=== PATIENT | female | born 1980 | race Caucasian/White ===

== ENCOUNTER 2016-12-04 18:34 | Emergency (ER) | payer BC, OTHER ==
[2016-12-04] MEDS ORDERED: METOCLOPRAMIDE 5 MG/ML 2 ML VIAL IVP STA (19:02)
[2016-12-04] MEDS ORDERED: PANTOPRAZOLE 40 MG/10 ML VIAL IVP STA (19:02)
[2016-12-04] MEDS ORDERED: SODIUM CHLORIDE 0.9% 1,000 ML IV STA (19:02)
[2016-12-04] MEDS ORDERED: HYDROmorphone 1 MG/ML 1 ML SYRINGE IVP STA (19:02)
--- NOTE | 2016-12-04 19:08 | ED ---
General Adult HPI - General Chief complaint: Abdominal Pain Stated complaint: ABDOMINAL PAIN Time Seen by Provider: 12/04/16 18:47 Source: patient, family, RN notes reviewed Mode of arrival: ambulatory Limitations: no limitations - History of Present Illness Initial comments: Chief complaint and history of present illness is a 36-year-old female with complaint of epigastric area pain. This first started 2 days ago. She reports that she was at [facility] had a full workup including a CAT scan with IV contrast. She reports the labs are all within normal limits. No specific diagnosis was given. Patient reports that she's more comfortable sitting upright than laying flat. For the past 2 days she's had nausea vomiting and diarrhea. - Related Data Home Medications Medication Instructions Recorded Confirmed Norethindrone-E.estradiol-Iron 1 tab PO DAILY 06/27/15 12/04/16 [Microgestin Fe 1.5-30 Tab] Bismuth Subsalicylate 524 mg PO ONCE PRN 12/04/16 12/04/16 [Pepto-Bismol] Polyethylene Glycol 3350 [Miralax] 17 gm PO ONCE PRN 12/04/16 12/04/16 Previous Rx's Medication Instructions Recorded Omeprazole 40 mg PO DAILY #40 capsule. 12/04/16 Ondansetron Odt [Zofran ODT] 4 mg PO Q8HR PRN #10 tab 12/04/16 Allergies Allergy/AdvReac Type Severity Reaction Status Date / Time bupropion HCl Allergy Rash/Hives Verified 12/04/16 19:16 [From Wellbutrin] Penicillins Allergy Unknown Verified 12/04/16 19:16 Childhood citalopram hydrobromide AdvReac VERY Verified 12/04/16 19:16 [From Celexa] AGGRESSIVE BEHAVIOR Review of Systems ROS Statement: Those systems with pertinent positive or pertinent negative responses have been documented in the HPI. Review of systems no complaint of headache or visual acuity changes no chest pain no complaint of shortness of breath. She points epigastric region as area of maximal discomfort that radiates to the left upper and right upper quadrant area. Nausea vomiting and diarrhea. No blood in the vomit or diarrhea. No neuro deficits all systems were otherwise reviewed. Past medical problems significant for cervical cancer she had a LEEP procedure. Other surgeries include cholecystectomy. Patient's family history significant for cancer to include uterine and pancreatic cancers. Father had heart disease. She has ALLERGIES to bupropion on penicillin and citalopram. She quit smoking 14 years ago drinks alcohol socially. ROS Other: All systems not noted in ROS Statement are negative. Past Medical History Past Medical History: No Reported History History of Any Multi-Drug Resistant Organisms: None Reported Past Surgical History: Cholecystectomy, Tonsillectomy Additional Past Surgical History / Comment(s): leep Past Psychological History: No Psychological Hx Reported Smoking Status: Former smoker Past Alcohol Use History: None Reported Past Drug Use History: None Reported General Exam - General Exam Comments Initial Comments: General: The patient is awake and alert, complaining of on again off again pain to the epigastric region. Vital signs temp 99.4 pulse 90 respiratory rate 20 pulse ox 99% room air blood pressure 170/90. Morbidly obese at 330 pounds Eye: Pupils are equal, round and reactive to light, extra-ocular movements are intact ; there is normal conjunctiva bilaterally. No signs of icterus. Ears, nose, mouth and throat: There are moist mucous membranes and no oral lesions. Neck: The neck is supple, there is no tenderness. Cardiovascular: There is a regular rate and rhythm. No murmur, rub or gallop is appreciated. Respiratory: Lungs are clear to auscultation, respirations are non-labored, breath sounds are equal. No wheezes, stridor, rales, or rhonchi. Gastrointestinal: Soft, non-distended, mildly tender with deep palpation in the epigastric region.. There is no rebound or guarding present. . Bowel sounds are unremarkable. Back: No back pain Musculoskeletal: Normal ROM, no tenderness, There is no pedal edema. There is no calf tenderness or swelling. Sensation intact. Pulses equal bilaterally 2+. Neurological: No complaint of dizziness no focal or lateralizing findings. No complaint of any deficits. Skin: Skin is warm and dry and no rashes or lesions are noted. Limitations: no limitations Course Vital Signs 12/04/16 12/04/16 18:36 19:37 Temperature 99.4 F 98.8 F Pulse Rate 90 71 Respiratory 20 18 Rate Blood Pressure 170/90 162/81 O2 Sat by Pulse 99 100 Oximetry Medical Decision Making - Medical Decision Making Medical decision-making. Patient's white count 7.8 hemoglobin 14 hematocrit 41 with potassium 4.2. BUN 9 creatinine 0.8 GFR greater than 60. Amylase lipase normal limits. Plasma lactic acid mildly elevated at 2.8. I reviewed the x-rays of the abdomen. No evidence of any free air. Normal appearing gas pattern. Phleboliths noted left lower quadrant. Awaiting radiologist's final impression. Dr. Gorman Patient states she is feeling much better now. No pain. We discussed gastritis and reflux problems. Patient will follow directions. She'll be placed on omeprazole to be taken daily. Advised that if she continues having discomfort after 6 weeks endoscopy would be recommended. She'll follow-up with family physician. In the meanwhile she to continue with antacids as needed, one hour after meals and at bedtime. Advised no smoking no drinking and no foods irritate her stomach. - Lab Data Result diagrams: 12/04/16 19:42 12/04/16 19:42 Lab Results 12/04/16 12/04/16 12/04/16 Range/Units 19:42 19:42 19:42 WBC 7.8 (3.8-10.6) k/uL RBC 4.83 (3.80-5.40) m/uL Hgb 14.1 (11.4-16.0) gm/dL Hct 41.3 (34.0-46.0) % MCV 85.5 (80.0-100.0) fL MCH 29.3 (25.0-35.0) pg MCHC 34.3 (31.0-37.0) g/dL RDW 13.2 (11.5-15.5) % Plt Count 357 (150-450) k/uL Neutrophils % 62 % Lymphocytes % 29 % Monocytes % 5 % Eosinophils % 2 % Basophils % 1 % Neutrophils # 4.8 (1.3-7.7) k/uL Lymphocytes # 2.3 (1.0-4.8) k/uL Monocytes # 0.4 (0-1.0) k/uL Eosinophils # 0.1 (0-0.7) k/uL Basophils # 0.1 (0-0.2) k/uL Sodium 140 (137-145) mmol/L Potassium 4.2 (3.5-5.1) mmol/L Chloride 101 (98-107) mmol/L Carbon Dioxide 24 (22-30) mmol/L Anion Gap 15 mmol/L BUN 9 (7-17) mg/dL Creatinine 0.80 (0.52-1.04) mg/dL Est GFR (MDRD) Af Amer >60 (>60 ml/min/1.73 sqM) Est GFR (MDRD) Non-Af >60 (>60 ml/min/1.73 sqM) Glucose 101 H (74-99) mg/dL Plasma Lactic Acid Rudolph 2.8 H* (0.7-2.0) mmol/L Calcium 10.0 (8.4-10.2) mg/dL Total Bilirubin 0.4 (0.2-1.3) mg/dL AST 27 (14-36) U/L ALT 58 H (9-52) U/L Alkaline Phosphatase 48 (38-126) U/L Total Protein 7.5 (6.3-8.2) g/dL Albumin 4.6 (3.5-5.0) g/dL Amylase 55 (30-110) U/L Lipase 144 (23-300) U/L Disposition Clinical Impression: Gastritis Disposition: HOME SELF-CARE Condition: Stable Instructions: Gastritis (ED), Diet for Stomach Ulcers and Gastritis (ED) Additional Instructions: Take medications as directed. Also use antacids as needed, one hour after meals and at bedtime. No alcohol, no smoking and no gastric irritating food. Follow-up with family physician. If pain persists endoscopy recommended in 6 weeks. Prescriptions: Omeprazole 40 mg PO DAILY #40 capsule. Ondansetron Odt [Zofran ODT] 4 mg PO Q8HR PRN #10 tab PRN Reason: Nausea Referrals: Mohit Coulter DO [Primary Care Provider] - 1-2 days Time of Disposition: 20:25
[2016-12-04 19:52] LABS: Basophils # (A) 0.1 k/uL (0-0.2); Basophils % (A) 1 %; CH 28.9; Eosinophils # (A) 0.1 k/uL (0-0.7); Eosinophils % (A) 2 %; HCT 41.3 % (34.0-46.0); HDW 2.62; HGB 14.1 gm/dL (11.4-16.0); Luc # (Auto) 0.15; Luc % (Auto) 2; Lymphocytes # (A) 2.3 k/uL (1.0-4.8); Lymphocytes % (A) 29 %; MCH 29.3 pg (25.0-35.0); MCHC 34.3 g/dL (31.0-37.0); MCV 85.5 fL (80.0-100.0); Mean Platelet Volume 6.5; Monocytes # (A) 0.4 k/uL (0-1.0); Monocytes % (A) 5 %; Neutrophils # (A) 4.8 k/uL (1.3-7.7); Neutrophils % (A) 62 %; RBC 4.83 m/uL (3.80-5.40); RDW 13.2 % (11.5-15.5); WBC 7.8 k/uL (3.8-10.6); WBC (Perox) 7.75
[2016-12-04 20:00] LABS: ALT 58 U/L (9-52); AST 27 U/L (14-36); Alkaline Phosphatase 48 U/L (38-126); Amylase 55 U/L (30-110); Anion Gap 15 mmol/L; Blood Urea Nitrogen 9 mg/dL (7-17); Carbon Dioxide 24 mmol/L (22-30); Chloride 101 mmol/L (98-107); Glucose 101 mg/dL (74-99); Non-African American GFR(MDRD) >60 (>60 ml/min/1.73 sqM); Potassium 4.2 mmol/L (3.5-5.1); Sodium 140 mmol/L (137-145); Total Bilirubin 0.4 mg/dL (0.2-1.3); Total Protein 7.5 g/dL (6.3-8.2)
[2016-12-04 20:47] LABS: Appearance,Urine Clear (Clear); Bilirubin,Urine Negative (Negative); Glucose,Urine (UA) Negative (Negative); Ketones,Urine Negative (Negative); Leukocyte Esterase,Urine Negative (Negative); Nitrite,Urine Negative (Negative); PH, Urine 5.5 (5.0-8.0); Protein,Urine Negative (Negative); Specific Gravity,Urine 1.012 (1.001-1.035); UA Billing (MACRO vs. MICRO) CHEM; Urobilinogen,Urine <2.0 mg/dL (<2.0)
[2016-12-04 20:52] VITALS: BP 135/74; PULSE 58; RESP 16; TEMP 98.2
--- NOTE | 2016-12-06 14:09 | XR ---
EXAMINATION TYPE: XR abdomen 2V DATE OF EXAM: 12/04/2016 COMPARISON: NONE INDICATION: Abdomen pain TECHNIQUE: 2 view abdomen upright and supine views FINDINGS: There is nonspecific bowel gas present. Small bowel gas is identified which is at the upper limits of normal for size. Suspicious air-fluid levels are not identified. No free air is evident. Psoas margins are normal. No organomegaly is present. Cholecystectomy clips are present. IMPRESSION: 1. Nonspecific abdomen.
== END 2016-12-04 20:59 | disposition home or self-care (01) ==
LOC: EC 18:34
DX: K29.70 Gastritis, unspecified, without bleeding (principal); I87.8 Other specified disorders of veins; Z90.49 Acquired absence of other specified parts of digestive tract; Z87.891 Personal history of nicotine dependence; Z79.3 Long term (current) use of hormonal contraceptives; Z88.0 Allergy status to penicillin; Z88.8 Allergy status to other drugs, medicaments and biological substances
CPT/HCPCS: 99284 ×2; 96374 ×2; 96375 ×3; 96361 ×2; 36415; 80053; 82150; 83605; 83690; 85025; 81003; 74020; J2765; J1170; C9113

== ENCOUNTER → 2018-09-14 | Outpatient (CLI) | payer BC ==
--- NOTE | 2018-09-14 20:47 | CONS ---
CONSULTATION DATE OF SERVICE: 09/14/2018. 38-year-old lady has been evaluated in [facility] for obstructive sleep apnea- hypopnea syndrome. HISTORY OF PRESENT ILLNESS/SLEEP WAKE EVALUATION: Patient has history of obstructive sleep apnea since 2005. Since that time, she is on treatment with CPAP. She continues to use her equipment every night for the whole night. Recently her old machine started to develop some problems. With CPAP treatment, patient does not have any significant snoring. She sleeps well, wakes up once with nocturia. SLEEP SCHEDULE: Sleep schedule on working days from 10 p.m. to 5:45 a.m. On weekends, she sleeps from 11 p.m. until 6:30 a.m. FALLING ASLEEP: No problems with falling asleep. No TV in bedroom. DURING THE DAY/SLEEP WAKE EVALUATION: The patient may be take nap once on weekends. [place] Sleepiness Scale is 4, which is in normal range. Usually does not take any naps. MEDICATIONS: control pills. PAST MEDICAL HISTORY: Positive for cervical CA. PAST SURGICAL HISTORY: Tonsillectomy, D and C, ADAM, in 2004. SOCIAL HISTORY: Positive history for smoking 1 pack for 5 years, quit about 16 years ago. Alcohol consumption none. FAMILY HISTORY: Hypertension, heart problems, hyperlipidemia, stroke, sleep apnea, cancer, liver problems, diabetes. REVIEW OF SYSTEMS: Basically mostly negative with the usage of CPAP. A significant increasing weight for the last 12 years of 60 pounds since previous sleep study. PHYSICAL EXAM: Patient in no distress. BP 132/91, HR 88, RR 18, height 5 feet 9 inches, weight 346 pounds, temperature 98.2, oxygen saturation at room air 96%. Body mass index 51. Oropharynx extremely low position of soft palate, Mallampati 4, wide neck is 17 inches in circumference. Neck: Supple, no JVD. Thyroid is not palpable. LUNGS Clear to percussion and to auscultation. Good air exchange. No wheezing or rhonchi. HEART S1, S2 regular. No murmurs, gallops, or rubs. ABDOMEN: Obese. Soft and nontender. Bowel sounds are present. No organomegaly appreciated. EXTREMITIES No clubbing or cyanosis. CORK COMPOUNDER Awake, alert, and oriented X3. Cranial nerves 2 to 7 intact. There is no fasciculation or atrophy. noted. No focal deficits observed. IMPRESSION: 1. History of obstructive sleep apnea-hypopnea syndrome for 12 years, without machine patient snores. Extremely low position of soft palate, wide neck. The patient continued to use CPAP equipment every night with CPAP. No snoring. 2. Obesity. Patient increased weight 60 pounds since previous sleep study. 3. History of cervical carcinoma. Status post LEEP in 2004. 4. Status post tonsillectomy. 5. Status post D and C. PLAN: 1. Prescription for new CPAP unit. The patient will start to use it with automatic regimen with a maximum pressure of 15. 2. Losing weight. 3. Sleep hygiene with regular time in bed for at least 7.5 hours. 4. Prescription for all necessary CPAP supplies including mask, tube, filters. 5. No driving if feeling sleepiness. 6. I will see patient after 1 months getting new CPAP unit to evaluate clinical response on treatment compliance with treatment and check apnea-hypopnea index reading from the new CPAP unit. Thank you very much for allowing me to participate in management of your patient. Sincerely, Axel Houston MD, PhD, FAASM Diplomat of [employer] Non Food Receiving Clerk of [facility] [place] MMODL / IJN: [id number] /
== END ==
LOC: SLEEP 15:41
PROVIDERS: ATTEND Internal Medicine
DX: G47.33 Obstructive sleep apnea (adult) (pediatric) (principal); E66.9 Obesity, unspecified; Z99.89 Dependence on other enabling machines and devices; Z85.41 Personal history of malignant neoplasm of cervix uteri; Z90.49 Acquired absence of other specified parts of digestive tract; Z98.890 Other specified postprocedural states; Z68.43 Body mass index [BMI] 50.0-59.9, adult; Z87.891 Personal history of nicotine dependence; Z79.899 Other long term (current) drug therapy
CPT/HCPCS: 99211

== ENCOUNTER → 2018-11-30 | Outpatient (CLI) | payer BC ==
--- NOTE | 2018-11-30 22:13 | PN ---
PROGRESS NOTE DATE OF SERVICE: 11/30/2018 This patient is a 38-year-old lady who has been followed in [facility] for treatment of obstructive sleep apnea-hypopnea syndrome. About one month ago the patient received a new CPAP unit. She is able to use it every night without significant problems related to mask fitting, pressure and humidification. She is using [employer] FX nasal pillows for her. She does not snore with the machine. [place] Sleepiness Scale today is 4, which is in normal range. I checked her CPAP unit. Range of pressure is from 8 to 15 cm of water. Usage is 100% of nights for more than 4 hours, with average usage 7.8 hours. Average pressure is 8.9 cm of water. Leak is 7 L/minute, which is acceptable. Apnea-hypopnea index only 0.3, which is perfect. MEDICATION: control pills. PHYSICAL EXAMINATION: GENERAL: A pleasant patient in no distress. VITAL SIGNS: BP 132/74, HR 70, RR 16, weight 335 pounds, temperature 98.2, oxygen saturation at room air 97%. HEENT: PERRLA, EOMI. Evaluation of oropharynx showed tongue protrudes midline. Low position of soft palate. Mallampati IV. NECK: Supple. No JVD. Thyroid is not palpable. LUNGS: Clear to percussion and to auscultation. Good air exchange. No wheezing or rhonchi. HEART: S1, S2 regular. No murmurs, gallops or rubs. ABDOMEN: Obese. EXTREMITIES: No clubbing or cyanosis. CUT OFF MACHINE UNLOADER: Awake, alert, and oriented X3. Cranial nerves 2 to 7 intact. There is no fasciculation or atrophy. noted. No focal deficits observed. IMPRESSION: 1. Obstructive sleep apnea-hypopnea syndrome. The patient demonstrated 100% compliance with treatment, normal respiration on CPAP, benefitting from treatment. 2. Obesity. 3. History of cervical cancer, status post LEEP in 2004. 4. Status post tonsillectomy. 5. Status post dilation and curettage. PLAN: 1. The patient will continue to use CPAP equipment every night for the whole night. 2. Losing weight. 3. Sleep hygiene with regular time in bed for at least 7-1/2 to 8 hours. 4. No driving if feeling any sleepiness. 5. I will maintain all necessary prescriptions for CPAP supplies, including nasal pillows, mask, heated tube, filters. Thank you very much for allowing me to participate in the management of your patient. Sincerely, Axel Houston MD, PhD, FAASM Diplomat of [employer] Documentation Improvement Specialist of [facility] [place] MMODL / PATRICIAN: [id number] /
== END ==
LOC: SLEEP 16:40
PROVIDERS: ATTEND Internal Medicine
DX: G47.33 Obstructive sleep apnea (adult) (pediatric) (principal); E66.9 Obesity, unspecified; Z90.89 Acquired absence of other organs; Z98.890 Other specified postprocedural states; Z85.41 Personal history of malignant neoplasm of cervix uteri; Z85.89 Personal history of malignant neoplasm of other organs and systems; Z99.89 Dependence on other enabling machines and devices; Z79.899 Other long term (current) drug therapy

== ENCOUNTER 2019-05-26 14:10 | Inpatient (IN) | payer BC, OTHER ==
[~2019-05-26 14:10] MED LIST: HYDROmorphone (PF) 1 MG/ML ONE; KETOROLAC 30 MG/ML 1 ML VIAL ONE; LIDOCAINE 1% INJ 10MG/ML (20 ML MDV) ONE; MIDAZOLAM 2 MG/2 ML VIAL ONE; NEOSTIGMINE 1 MG/ML 10 ML VIAL ONE; PROPOFOL 10 MG/ML 20 ML VIAL IV ONE; ROCURONIUM BROMIDE 10 MG/ML 5 ML VIAL IV ONE; SUCCINYLCHOLINE CHLORIDE VIAL 200 MG/10 ML VIAL IV ONE; fentaNYL (PF) 50 MCG/ML 2 ML AMP ONE
[2019-05-26] MEDS ORDERED: ONDANSETRON 4 MG/2 ML VIAL IVP STA (14:55)
[2019-05-26] MEDS ORDERED: KETOROLAC 30 MG/ML 1 ML VIAL IVP STA (14:55)
[2019-05-26] MEDS ORDERED: SODIUM CHLORIDE 0.9% 1,000 ML IV STA (14:55)
--- NOTE | 2019-05-26 15:02 | ED ---
Abdominal Pain HPI <Walker Klein Miles - Last Filed: 05/26/19 19:06> - General Source: patient Mode of arrival: ambulatory Limitations: no limitations <Tiffany Carr - Last Filed: 05/26/19 19:55> - General Chief Complaint: Abdominal Pain Stated Complaint: Syncope Time Seen by Provider: 05/26/19 14:34 - History of Present Illness Initial Comments: Patient is a 39-year-old female presenting to the emergency Department with complaints of abdominal pain since yesterday. Patient states yesterday she started having intense pressure in her lower abdominal and rectal region. Patient's describes it as "holding in a lot of gas." She states she went to lay down and then had a massage yesterday and was feeling better. Patient states she woke up this morning and began having that same pressure feeling along with upper and lower abdominal pain. Patient states it is intermittent and when it does come on she has to double over in pain and it caused her to almost passed out a couple times. Patient states the sharp pain is epigastric region as well is in to her the bottom of her lower ribs, however she just feels pain in her lower abdominal region as well. Patient has history of cholecystectomy. No other abdominal surgeries. She does have history of cervical cancer over 17 years ago and has had regular follow-ups since, normal paps since. She also has history of kidney stones. She denies fever, shortness of breath, vomiting, diarrhea. She had normal bowel movement this morning. She has been nauseous when the pain intensifies. She also describes lower chest discomfort when the p ain intensifies as well. She denies being or chance of. She has no other complaints at this time. Upon arrival to the ER, her vitals are stable. (Tiffany Carr) - Related Data Home Medications Medication Instructions Recorded Confirmed Ibuprofen [Motrin] 800 mg PO TID PRN 05/26/19 05/26/19 Allergies Allergy/AdvReac Type Severity Reaction Status Date / Time bupropion HCl Allergy Rash/Hives Verified 05/26/19 18:52 [From Wellbutrin] Penicillins Allergy Unknown Verified 05/26/19 18:52 Childhood citalopram hydrobromide AdvReac VERY Verified 05/26/19 18:52 [From Celexa] AGGRESSIVE BEHAVIOR Review of Systems ROS Other: All systems not noted in ROS Statement are negative. <John Kleinssslava Aquino - Last Filed: 05/26/19 19:06> ROS Other: All systems not noted in ROS Statement are negative. <Tiffany Carr - Last Filed: 05/26/19 19:55> ROS Statement: Those systems with pertinent positive or pertinent negative responses have been documented in the HPI. Past Medical History Past Medical History: No Reported History History of Any Multi-Drug Resistant Organisms: None Reported Past Surgical History: Cholecystectomy, Tonsillectomy Additional Past Surgical History / Comment(s): leederek Past Psychological History: No Psychological Hx Reported Smoking Status: Former smoker Past Alcohol Use History: None Reported Past Drug Use History: None Reported <Tiffany Carr - Last Filed: 05/26/19 19:55> General Exam Limitations: no limitations External exam: Present: normal external exam Speculum exam: Present: normal speculum exam, other (cervical os is closed). Absent: cervical discharge, vaginal bleeding, foreign body By manual exam: Present: cervical motion tenderness (mild tenderness) <Tiffany Carr - Last Filed: 05/26/19 19:55> - General Exam Comments Initial Comments: GENERAL: Well-appearing, well-nourished and in no acute distress. HEAD: Atraumatic, normocephalic. EYES: Pupils equal round and reactive to light, extraocular movements intact, sclera anicteric, conjunctiva are normal. ENT: TMs normal, nares patent, oropharynx clear without exudates. Moist mucous membranes. NECK: Normal range of motion, supple without lymphadenopathy or JVD. LUNGS: Breath sounds clear to auscultation bilaterally and equal. No wheezes rales or rhonchi. HEART: Regular rate and rhythm without murmurs, rubs or gallops. ABDOMEN: Nonlocalized abdominal tenderness, slightly increased the epigastric and lower abdominal region. Positive guarding, positive radiation of pain Soft, normoactive bowel sounds. No rebound. No masses appreciated. EXTREMITIES: Normal range of motion, no pitting or edema. No clubbing or cyanosis. NEUROLOGICAL: Normal speech, normal gait. PSYCH: Normal mood, normal affect. SKIN: Warm, Dry, normal turgor, no rashes or lesions noted. (Tiffany Carr) Course Vital Signs 05/26/19 05/26/19 05/26/19 14:16 16:00 17:04 Temperature 97.8 F 98.7 F Pulse Rate 94 88 80 Respiratory 20 18 18 Rate Blood Pressure 120/91 129/86 118/79 O2 Sat by Pulse 100 98 98 Oximetry 05/26/19 05/26/19 05/26/19 17:37 18:30 18:40 Temperature Pulse Rate 92 113 H 118 H Respiratory 18 22 16 Rate Blood Pressure 137/78 116/101 112/76 O2 Sat by Pulse 100 100 100 Oximetry 05/26/19 05/26/19 05/26/19 18:50 19:00 19:10 Temperature Pulse Rate 85 90 94 Respiratory 28 H 25 H 27 H Rate Blood Pressure 89/59 109/73 121/66 O2 Sat by Pulse 95 98 98 Oximetry 05/26/19 19:15 Temperature Pulse Rate 98 Respiratory 18 Rate Blood Pressure 105/57 O2 Sat by Pulse 99 Oximetry Medical Decision Making - Lab Data Result diagrams: 05/26/19 15:07 05/26/19 15:07 <Walker Klein - Last Filed: 05/26/19 19:06> - Lab Data Result diagrams: 05/26/19 15:07 05/26/19 15:07 <Tiffany Carr - Last Filed: 05/26/19 19:55> - Medical Decision Making PA attestation: I, Dr. Walker Klein, personally saw and examined the patient. I have reviewed and agree with the resident/PA findings, including all diagnostic interpretations and treatment plans as written unless otherwise stated. I was present for the hernandez portions of any procedures performed and inclusive time noted for any critical care statement. Patient care was managed along with physician senior assistant manager Tiffany Carr. Briefly, patient is 39-year-old female presented with lower abdominal symptoms since yesterday. Patient having worsening symptoms. Vital signs upon arrival are within acceptable limits. There is concerns of ectopic . CT abdomen and pelvis and ultrasound of the pelvis was obtained showing complex mass concerning for ectopic . Patient was positive for and had a beta Quant of 4000. There was no signs of intrauterine .. [employer] was called immediately and will be disposition to the operating room. While in the emergency department patient became pale tachycardic and hypotensive she has multiple resuscitation bay. Massive transfusion protocol was activated. Pending type and screen. Dr. Gonzalez currently at bedside and will be taking patient straight to the operating room. Patient was continually pale mildly tachycardic and blood pressure began decreasing. Patient given 2 units of blood. (Walker Klein) Patient is a 39-year-old female presenting with abdominal pain 2 days. Patient denies chance for . Vitals are stable upon arrival. Labwork shows slight leukocytosis at 13.4, hemoglobin is 11.0. Patient was having intense belly pain and did not want to wait for urine hCG stating there is no chance that she is . So we went ahead with CT abdomen and pelvis. CT shows moderate abdominal ascites, possibility of ovarian mass cannot be excluded. They recommended ultrasound. Urine did reveal a positive hCG. Ultrasound reveals an empty uterus. Large complex mass in the pelvic around the ureter and fundus. There is mild fluid posterior to the uterine fundus. This could relate to a blood clot debridement due to ectopic with rupture. HCG Renard returned at [id number]. Case was discussed with Dr. suarez didn't. Vaginal exam reveals no vaginal bleeding, cervical os is closed, mild cervical motion tenderness. Case was discussed with Dr. Gonzalez who will see the patient and admit. During waiting time in the ER, patient became severely diaphoretic, lightheaded and her blood pressure went down to 99/50. Patient was transferred to trauma bay. Dr. Panchal took over care. Dr. Gonzalez will take to OR. (Tiffany Carr) - Lab Data Lab Results 05/26/19 05/26/19 05/26/19 Range/Units 15:07 15:07 15:07 WBC 13.4 H (3.8-10.6) k/uL RBC 3.82 (3.80-5.40) m/uL Hgb 11.0 L (11.4-16.0) gm/dL Hct 33.5 L (34.0-46.0) % MCV 87.7 (80.0-100.0) fL MCH 28.9 (25.0-35.0) pg MCHC 32.9 (31.0-37.0) g/dL RDW 13.4 (11.5-15.5) % Plt Count 333 (150-450) k/uL Neutrophils % 82 % Lymphocytes % 14 % Monocytes % 3 % Eosinophils % 0 % Basophils % 0 % Neutrophils # 10.9 H (1.3-7.7) k/uL Lymphocytes # 1.8 (1.0-4.8) k/uL Monocytes # 0.4 (0-1.0) k/uL Eosinophils # 0.0 (0-0.7) k/uL Basophils # 0.0 (0-0.2) k/uL PT 9.9 (9.0-12.0) sec INR 0.9 (<1.2) APTT 20.1 L (22.0-30.0) sec Sodium 133 L (137-145) mmol/L Potassium 4.2 (3.5-5.1) mmol/L Chloride 104 (98-107) mmol/L Carbon Dioxide 21 L (22-30) mmol/L Anion Gap 8 mmol/L BUN 15 (7-17) mg/dL Creatinine 0.70 (0.52-1.04) mg/dL Est GFR (CKD-EPI)AfAm >90 (>60 ml/min/1.73 sqM) Est GFR (CKD-EPI)NonAf >90 (>60 ml/min/1.73 sqM) Glucose 129 H (74-99) mg/dL Calcium 9.5 (8.4-10.2) mg/dL Total Bilirubin 0.4 (0.2-1.3) mg/dL AST 25 (14-36) U/L ALT 23 (4-34) U/L Alkaline Phosphatase 40 (38-126) U/L Troponin I (0.000-0.034) ng/mL Total Protein 6.2 L (6.3-8.2) g/dL Albumin 3.6 (3.5-5.0) g/dL Amylase 38 (30-110) U/L Lipase 73 (23-300) U/L HCG, Quant mIU/mL Urine Color Urine Appearance (Clear) Urine pH (5.0-8.0) Ur Specific [place] (1.001-1.035) Urine Protein (Negative) Urine Glucose (UA) (Negative) Urine Ketones (Negative) Urine Blood (Negative) Urine Nitrite (Negative) Urine Bilirubin (Negative) Urine Urobilinogen (<2.0) mg/dL Ur Leukocyte Esterase (Negative) Urine WBC (0-5) /hpf Ur Squamous Epith Cells (0-4) /hpf Calcium Oxalate Crystal (None) /hpf Urine Mucus (None) /hpf Urine HCG, Qual (Not Detectd) 05/26/19 05/26/19 05/26/19 Range/Units 15:07 15:07 15:11 WBC (3.8-10.6) k/uL RBC (3.80-5.40) m/uL Hgb (11.4-16.0) gm/dL Hct (34.0-46.0) % MCV (80.0-100.0) fL MCH (25.0-35.0) pg MCHC (31.0-37.0) g/dL RDW (11.5-15.5) % Plt Count (150-450) k/uL Neutrophils % % Lymphocytes % % Monocytes % % Eosinophils % % Basophils % % Neutrophils # (1.3-7.7) k/uL Lymphocytes # (1.0-4.8) k/uL Monocytes # (0-1.0) k/uL Eosinophils # (0-0.7) k/uL Basophils # (0-0.2) k/uL PT (9.0-12.0) sec INR (<1.2) APTT (22.0-30.0) sec Sodium (137-145) mmol/L Potassium (3.5-5.1) mmol/L Chloride (98-107) mmol/L Carbon Dioxide (22-30) mmol/L Anion Gap mmol/L BUN (7-17) mg/dL Creatinine (0.52-1.04) mg/dL Est GFR (CKD-EPI)AfAm (>60 ml/min/1.73 sqM) Est GFR (CKD-EPI)NonAf (>60 ml/min/1.73 sqM) Glucose (74-99) mg/dL Calcium (8.4-10.2) mg/dL Total Bilirubin (0.2-1.3) mg/dL AST (14-36) U/L ALT (4-34) U/L Alkaline Phosphatase (38-126) U/L Troponin I <0.012 (0.000-0.034) ng/mL Total Protein (6.3-8.2) g/dL Albumin (3.5-5.0) g/dL Amylase (30-110) U/L Lipase (23-300) U/L HCG, Quant 4063.6 mIU/mL Urine Color Yellow Urine Appearance Cloudy H (Clear) Urine pH 5.5 (5.0-8.0) Ur Specific [place] 1.026 (1.001-1.035) Urine Protein Trace H (Negative) Urine Glucose (UA) Negative (Negative) Urine Ketones 1+ H (Negative) Urine Blood Negative (Negative) Urine Nitrite Negative (Negative) Urine Bilirubin Negative (Negative) Urine Urobilinogen <2.0 (<2.0) mg/dL Ur Leukocyte Esterase Moderate H (Negative) Urine WBC 4 (0-5) /hpf Ur Squamous Epith Cells 5 H (0-4) /hpf Calcium Oxalate Crystal Occasional H (None) /hpf Urine Mucus Few H (None) /hpf Urine HCG, Qual (Not Detectd) 05/26/19 Range/Units 15:11 WBC (3.8-10.6) k/uL RBC (3.80-5.40) m/uL Hgb (11.4-16.0) gm/dL Hct (34.0-46.0) % MCV (80.0-100.0) fL MCH (25.0-35.0) pg MCHC (31.0-37.0) g/dL RDW (11.5-15.5) % Plt Count (150-450) k/uL Neutrophils % % Lymphocytes % % Monocytes % % Eosinophils % % Basophils % % Neutrophils # (1.3-7.7) k/uL Lymphocytes # (1.0-4.8) k/uL Monocytes # (0-1.0) k/uL Eosinophils # (0-0.7) k/uL Basophils # (0-0.2) k/uL PT (9.0-12.0) sec INR (<1.2) APTT (22.0-30.0) sec Sodium (137-145) mmol/L Potassium (3.5-5.1) mmol/L Chloride (98-107) mmol/L Carbon Dioxide (22-30) mmol/L Anion Gap mmol/L BUN (7-17) mg/dL Creatinine (0.52-1.04) mg/dL Est GFR (CKD-EPI)AfAm (>60 ml/min/1.73 sqM) Est GFR (CKD-EPI)NonAf (>60 ml/min/1.73 sqM) Glucose (74-99) mg/dL Calcium (8.4-10.2) mg/dL Total Bilirubin (0.2-1.3) mg/dL AST (14-36) U/L ALT (4-34) U/L Alkaline Phosphatase (38-126) U/L Troponin I (0.000-0.034) ng/mL Total Protein (6.3-8.2) g/dL Albumin (3.5-5.0) g/dL Amylase (30-110) U/L Lipase (23-300) U/L HCG, Quant mIU/mL Urine Color Urine Appearance (Clear) Urine pH (5.0-8.0) Ur Specific [place] (1.001-1.035) Urine Protein (Negative) Urine Glucose (UA) (Negative) Urine Ketones (Negative) Urine Blood (Negative) Urine Nitrite (Negative) Urine Bilirubin (Negative) Urine Urobilinogen (<2.0) mg/dL Ur Leukocyte Esterase (Negative) Urine WBC (0-5) /hpf Ur Squamous Epith Cells (0-4) /hpf Calcium Oxalate Crystal (None) /hpf Urine Mucus (None) /hpf Urine HCG, Qual Detected (Not Detectd) - EKG Data EKG Comments: Ventricular rate 96, [place] interval 156, QTc 454. Normal sinus rhythm, normal ECG. No acute ST Segment changes. (Tiffany Carr) Critical Care Time Critical Care Time: Yes Total Critical Care Time: 30 <Tiffany Carr - Last Filed: 05/26/19 19:55> Critical Care Time: Patient became hypotensive, diaphoretic, lightheaded. Patient was moved to trauma bay. Patient was reexamined, vitals re-assessed, labs reviewed, consulted with attending Dr. Klein, on-call [employer], Dr. Gonzalez, and with blood bank. (Tiffany Carr) Disposition <Walker Klein - Last Filed: 05/26/19 19:06> Is patient prescribed a controlled substance at d/c from ED?: No Decision Date: 05/26/19 Decision Time: 17:50 <Tiffany Carr - Last Filed: 05/26/19 19:55> Clinical Impression: Abdominal pain, Ruptured ectopic Disposition: ADMITTED IP TO THIS [facility] Condition: Stable
[2019-05-26 15:33] LABS: Basophils % (A) 0 %; Eosinophils % (A) 0 %; HCT 33.5 % (34.0-46.0); Lymphocytes # (A) 1.8 k/uL (1.0-4.8); Lymphocytes % (A) 14 %; MCH 28.9 pg (25.0-35.0); MCHC 32.9 g/dL (31.0-37.0); MCV 87.7 fL (80.0-100.0); Mean Platelet Volume 7.1; Monocytes # (A) 0.4 k/uL (0-1.0); Monocytes % (A) 3 %; Neutrophils # (A) 10.9 k/uL (1.3-7.7); Neutrophils % (A) 82 %; Platelet Count 333 k/uL (150-450); RBC 3.82 m/uL (3.80-5.40); RDW 13.4 % (11.5-15.5); WBC 13.4 k/uL (3.8-10.6)
[2019-05-26 15:48] LABS: ALT 23 U/L (4-34); AST 25 U/L (14-36); African American GFR (CKD) >90 (>60 ml/min/1.73 sqM); Albumin 3.6 g/dL (3.5-5.0); Alkaline Phosphatase 40 U/L (38-126); Amylase 38 U/L (30-110); Anion Gap 8 mmol/L; Blood Urea Nitrogen 15 mg/dL (7-17); Calcium 9.5 mg/dL (8.4-10.2); Carbon Dioxide 21 mmol/L (22-30); Chloride 104 mmol/L (98-107); Glucose 129 mg/dL (74-99); Non-African American GFR(CKD) >90 (>60 ml/min/1.73 sqM); Potassium 4.2 mmol/L (3.5-5.1); Sodium 133 mmol/L (137-145); Total Bilirubin 0.4 mg/dL (0.2-1.3); Total Protein 6.2 g/dL (6.3-8.2)
[2019-05-26 15:49] LABS: INR 0.9 (<1.2); Partial Thromboplastin Time 20.1 sec (22.0-30.0); Prothrombin Time 9.9 sec (9.0-12.0)
[2019-05-26 16:15] LABS: Appearance,Urine Cloudy (Clear); Bilirubin,Urine Negative (Negative); Blood,Urine Negative (Negative); Calcium Oxalate Crystals,Urine Occasional /hpf; Color,Urine Yellow; Glucose,Urine (UA) Negative (Negative); Ketones,Urine 1+ (Negative); Leukocyte Esterase,Urine Moderate (Negative); Mucus,Urine Few /hpf; Nitrite,Urine Negative (Negative); PH, Urine 5.5 (5.0-8.0); Protein,Urine Trace (Negative); Specific Gravity,Urine 1.026 (1.001-1.035); Squamous Epithelial Cell,Urine 5 /hpf (0-4); Urobilinogen,Urine <2.0 mg/dL (<2.0); WBC,Urine 4 /hpf (0-5)
--- NOTE | 2019-05-26 16:28 | CT ---
EXAMINATION TYPE: CT abdomen pelvis w con DATE OF EXAM: 05/26/2019 COMPARISON: None HISTORY: Abdominal pain. CT DLP: 3405.2 mGycm Automated exposure control for dose reduction was used. CONTRAST: Performed with IV Contrast, patient injected with 100ml mL of Isovue 300. Multiple axial sections were obtained from the diaphragm to the floor the pelvis with intravenous con trast. The contrast was Isovue 100 mL. FINDINGS: Lungs are clear. There is no pleural effusion. Heart size is normal. Liver spleen pancreas appear normal. Bile ducts are not dilated. There are clips from cholecystectomy . There is mild abdominal ascites. There is no adrenal mass. Kidneys show satisfactory contrast opaci fication. There is no hydronephrosis. Ureters are not dilated. There is some fluid in the paracolic g utters and in the pelvis. Bladder is almost empty. Uterus is anteverted. Lumbar vertebra have normal spacing and alignment. Posterior elements are intact. Bony pelvis is inta ct. Hip joints are intact. Sacroiliac joints appear normal. Uterus and ovaries are not well visualize d. IMPRESSION: There is moderate abdominal ascites. The uterus and the ovaries are not well delineated. The possibil ity of ovarian mass cannot be excluded. Ultrasound would be helpful for further evaluation if clinica lly indicated. Follow-up recommended.
[2019-05-26] MEDS ORDERED: ACETAMINOPHEN TAB 500 MG TAB PO STA (17:05)
--- NOTE | 2019-05-26 17:19 | US ---
EXAMINATION TYPE: Transabdominal DATE OF EXAM: 05/26/2019 5:03 PM COMPARISON: Same day CT CLINICAL HISTORY: lower abd pain, pressure. Pt states severe pelvic pain/ positive urine HCG EXAM PERFORMED: Transabdominal (TA) EXAM MEASUREMENTS: GESTATIONAL AGE / DATING Physician Established: Not established Dates by LMP: (4 weeks/6 days) EDC: 01/27/2020 Dates by First Scan: No prior Dates by Current Scan for: No IUP seen at this time MATERNAL ANATOMY Uterus: 10.9 x 5.3 x 5.0 cm Right Ovary: 2.3 x 2.3 x 1.9 cm Left Ovary: 3.5 x 2.6 x 2.6 cm Post CDS / Adnexa: Large complex collection within pelvis surrounding uterus approx= 13.8 x 6.6 x 2 0.5 cm, given positive beta ?ruptured ectopic GESTATION / SURVEY IUP: No IUP seen at this time, Endo thickness= 0.5 cm Date of LMP: Pt unsure, thinks 04/22/2019 Beta HcG (if available): Not available at this time, only positive urine Large, complex collection within pelvis surrounding uterus, ?blood, possible ruptured ectopic given positive urine HCG, no IUP visualized, endometrium not thickened IMPRESSION: Uterus is empty. Large complex mass in the pelvis around the uterine fundus. There is mild fluid post erior to the uterine fundus. This could relate to blood clot and debris due to ectopic with rupture in this patient with a positive test. Exam was discussed with Tiffany Carr at 5 :15 PM.
[2019-05-26] MEDS ORDERED: HYDROmorphone 1 MG/ML 1 ML SYRINGE IVP STA (17:28)
[2019-05-26] MEDS ORDERED: ONDANSETRON 4 MG/2 ML VIAL IVP PRN (17:47)
[2019-05-26] MEDS ORDERED: NALOXONE 0.4 MG/ML 1 ML VIAL IV PRN ×2 (17:47→20:28)
[2019-05-26] MEDS ORDERED: ACETAMINOPHEN TAB 325 MG TAB PO PRN (17:47)
[2019-05-26] MEDS ORDERED: HYDROmorphone 1 MG/ML 1 ML SYRINGE IVP PRN (17:47)
[2019-05-26] MEDS ORDERED: SODIUM CHLORIDE 0.9% 1,000 ML IV SCH (18:00)
[2019-05-26] MEDS ORDERED: TRANEXAMIC ACID 1,000 MG in SODIUM CHLORIDE 0.9% 100 ML IVPB ONE (18:37)
[2019-05-26] MEDS ORDERED: fentaNYL (PF) 50 MCG/ML 2 ML AMP IVP PRN (19:00)
--- NOTE | 2019-05-26 19:04 | P.HPOB ---
History of Present Illness H&P Date: 05/26/19 Chief Complaint: Ruptured ectopic Chelsey is a 39-year-old G 2 P1 who is approximately 5 weeks gestation who began having pain last night. The pain progressed and got severe she felt rectal pressure and significant pain worsen the right and left initially now all over her lower abdomen. She came to the emergency room for same and ultrasound shows large fluid collection surrounding her uterus suspect ruptured ectopic with a beta hCG of 4000 and nothing in the uterus. She is symptomatic with some lightheadedness. Initial hemoglobin was 11.9. I suspect based on the size of the blood collection in her pelvis that this number is significantly lower than what that number represents that she is probably been bleeding persistently since that initial blood count and there is a catch up period blood counts. Elevated until there is admitting to cooperation. Past medical history essentially unremarkable at this time next line past surgical history tonsil and adenoidectomy, D&C, LEEP, cholecystectomy ALLERGIES none. Social history is unremarkable. Family history noncontributory On physical exam vital signs currently are stable and she is afebrile. Heart is regular, lungs are clear abdomen is soft but significant tenderness across all quadrants. Pelvic exam done by the emergency room staff showed significant tenderness and fullness in the vagina. Assessment suspected ruptured ectopic Plan exploratory laparotomy with removal of hemoperitoneum likely salpingectomy with tube ligation on the other side as per her request as she is 39 years old and has completed her family planning. Possible bilateral soft and ectomy possible oophorectomy and attention of her other surgical needs or other surgeries. Risks/benefits/alternatives reviewed including but not limited to bleeding and infection, damage to bladder, damage to bowel, vascular injuries, nerve injuries, bleeding and infection. Potential damage to ureter as well. Some of the exam and discussion are truncated due to patient's significant pain and current condition. We are looking forward to rapidly get her to the operating room so that we can former exporter laparotomy and determine the exact cause of her abdominal bleeding. Ultrasound does show a 13 by approximately 8 x 20 cm fluid collection surrounding the entire uterus so there is no ability to differentiate which tube could be involved with the ectopic . Past Medical History Past Medical History: No Reported History History of Any Multi-Drug Resistant Organisms: None Reported Past Surgical History: Cholecystectomy, Tonsillectomy Additional Past Surgical History / Comment(s): leep Past Psychological History: No Psychological Hx Reported Smoking Status: Former smoker Past Alcohol Use History: None Reported Past Drug Use History: None Reported Medications and Allergies Home Medications Medication Instructions Recorded Confirmed Type Ibuprofen [Motrin] 800 mg PO TID PRN 05/26/19 05/26/19 History Allergies Allergy/AdvReac Type Severity Reaction Status Date / Time bupropion HCl Allergy Rash/Hives Verified 05/26/19 18:52 [From Wellbutrin] Penicillins Allergy Unknown Verified 05/26/19 18:52 Childhood citalopram hydrobromide AdvReac VERY Verified 05/26/19 18:52 [From Celexa] AGGRESSIVE BEHAVIOR Exam Osteopathic Statement: *. No significant issues noted on an osteopathic structural exam other than those noted in the History and Physical/Consult. Vital Signs Temp Pulse Resp BP Pulse Ox 05/26/19 18:30 113 H 22 116/101 100 05/26/19 17:37 92 18 137/78 100 05/26/19 17:04 98.7 F 80 18 118/79 98 05/26/19 16:00 88 18 129/86 98 05/26/19 14:16 97.8 F 94 20 120/91 100 Intake and Output 05/26/19 05/26/19 05/26/19 06:59 14:59 22:59 Intake Total 620 Balance 620 Intake: Blood Product 620 Rc As-1 Unit 310 [id number] Rc As-3 Unit 310 [id number] Other: Weight 136.078 kg Results Result Diagrams: 05/26/19 15:07 05/26/19 15:07 Abnormal Lab Results - Last 24 Hours (Table) 05/26/19 05/26/19 05/26/19 Range/Units 15:07 15:07 15:07 WBC 13.4 H (3.8-10.6) k/uL Hgb 11.0 L (11.4-16.0) gm/dL Hct 33.5 L (34.0-46.0) % Neutrophils # 10.9 H (1.3-7.7) k/uL APTT 20.1 L (22.0-30.0) sec Sodium 133 L (137-145) mmol/L Carbon Dioxide 21 L (22-30) mmol/L Glucose 129 H (74-99) mg/dL Total Protein 6.2 L (6.3-8.2) g/dL Urine Appearance (Clear) Urine Protein (Negative) Urine Ketones (Negative) Ur Leukocyte Esterase (Negative) Ur Squamous Epith Cells (0-4) /hpf Calcium Oxalate Crystal (None) /hpf Urine Mucus (None) /hpf Crossmatch 05/26/19 05/26/19 Range/Units 15:11 17:57 WBC (3.8-10.6) k/uL Hgb (11.4-16.0) gm/dL Hct (34.0-46.0) % Neutrophils # (1.3-7.7) k/uL APTT (22.0-30.0) sec Sodium (137-145) mmol/L Carbon Dioxide (22-30) mmol/L Glucose (74-99) mg/dL Total Protein (6.3-8.2) g/dL Urine Appearance Cloudy H (Clear) Urine Protein Trace H (Negative) Urine Ketones 1+ H (Negative) Ur Leukocyte Esterase Moderate H (Negative) Ur Squamous Epith Cells 5 H (0-4) /hpf Calcium Oxalate Crystal Occasional H (None) /hpf Urine Mucus Few H (None) /hpf Crossmatch See Detail
[2019-05-26] MEDS ORDERED: fentaNYL (PF) 50 MCG/ML 2 ML AMP IVP STA (19:06)
[2019-05-26] MEDS ORDERED: fentaNYL (PF) 50 MCG/ML 5 ML AMP IVP PRN (19:07)
[2019-05-26] MEDS ORDERED: IV FLUID CONTINUATION 300 ML IV ONE (19:21)
[2019-05-26] MEDS ORDERED: SODIUM CHLORIDE 0.9% 100 ML with ceFAZolin 3,000 MG IV ONE ×2 (19:43)
[2019-05-26] MEDS ORDERED: LACTATED RINGERS 1,000 ML IV ONE ×2 (20:04→21:39)
[2019-05-26] MEDS ORDERED: HYDROmorphone PCA 10 MG/50 ML BAG IV PRN (20:28)
--- NOTE | 2019-05-26 20:33 | P.OP ---
Date of Procedure: 05/26/19 Preoperative Diagnosis: Ruptured ectopic Postoperative Diagnosis: Same with hemoperitoneum and noted left cornual ectopic ruptured Procedure(s) Performed: Exploratory laparotomy with left partial salpingectomy and evacuation of hemoperitoneum. Filshie clips applied to right fallopian tube for family planning Anesthesia: PETER Surgeon: Hernesto Gonzalez Net Architect #1: Ruth Rogers Estimated Blood Loss (ml): 1,500 IV fluids (ml): 1,000 Urine output (ml): 250 Pathology: other (Ectopic ) Condition: stable Disposition: floor Operative Findings: Computed tomography scan cannot identify which side had the ectopic . Left cornual ectopic noted and removed it was ruptured on the tubal side of the ectopic Description of Procedure: Patient was taken to the operating suite where a general anesthetic was found be adequate. She was prepped and draped in the normal sterile fashion and placed in the dorsal supine position. Initially a Pfannenstiel skin incision was made and this incision was then carried through to the underlying layer of the fashion with second knife and the fascia was then nicked in the midline. This opening was then extended laterally with Harmon scissors and the superior and inferior aspect of this incision were grasped tented up, and bluntly dissected and sharply dissected. Blunt dissection the peritoneum was then done and this opening was extended superiorly and inferiorly with good visualization of both bowel bladder and evacuation of a large amount of hemoperitoneum of both liquid blood and clots was done. Once we were able to again to visualize the pelvis patient was placed in Trendelenburg position and bowels packed out of the operative field. A self-retaining retractor was then inserted and a bladder blade was placed. Uterus was then identified and palpate the left fallopian tube with a ruptured ectopic . It was grasped with a [place] and elevated. He clamps then used to clamp around the ectopic and it was excised. Over Vicryl suture was then used to obtain hemostasis in this area. A small portion of the left uterus was involved creating a cornual ectopic . O versewing of this area was then done to obtain excellent hemostasis through the area. Once this was completed uterus was tipped to the left side and the right fallopian tube was identified and 2 Filshie clips were placed on the right fallopian tube. Once this process was completed significant quantity of blood was then still evacuated by reducing the Trendelenburg and allowing the pooled blood to run down into the incision area. This was all suctioned out. Pelvis was then irrigated no bleeding is noted on added on the pedicles were on the uterus with fallopian tubes therefore all instruments removed and the fascial layer was then closed with 0 Vicryl suture. One layer of 3-0 Vicryl was placed in deep subcuticular tissues reapproximate skin and close space. Skin was then closed with 4-0 Vicryl subcuticular. Sponge, lap and needle counts were all correct 2. Patient was then taken to the recovery room in stable and satisfactory condition.
[2019-05-26] MEDS ORDERED: ONDANSETRON 4 MG/2 ML VIAL IVP ONE (21:05)
[2019-05-26] MEDS ORDERED: HYDROmorphone 1 MG/ML 1 ML SYRINGE IVP ONE ×3 (21:08→21:39)
[2019-05-26] MEDS ORDERED: diphenhydrAMINE 50 MG/ML 1 ML VIAL IVP ONE (21:19)
[2019-05-26] MEDS: LACTATED RINGERS 1,000 ML IV SCH (22:00)
[2019-05-27] MEDS: KETOROLAC 30 MG/ML 1 ML VIAL IVP PRN ×4 (02:01→20:02)
[2019-05-27 07:06] VITALS: RESP 18
[2019-05-27 07:19] LABS: Basophils % (A) 0 %; Eosinophils % (A) 0 %; HCT 28.2 % (34.0-46.0); Lymphocytes # (A) 2.7 k/uL (1.0-4.8); Lymphocytes % (A) 19 %; MCH 28.9 pg (25.0-35.0); MCHC 32.5 g/dL (31.0-37.0); MCV 88.7 fL (80.0-100.0); Mean Platelet Volume 7.4; Monocytes # (A) 0.7 k/uL (0-1.0); Monocytes % (A) 5 %; Neutrophils # (A) 10.4 k/uL (1.3-7.7); Neutrophils % (A) 74 %; Platelet Count 304 k/uL (150-450); RBC 3.18 m/uL (3.80-5.40); RDW 13.6 % (11.5-15.5)
[2019-05-27 07:48] LABS: HGB 9.2 gm/dL (11.4-16.0)
--- NOTE | 2019-05-27 10:19 | P.PN ---
Progress Note - Text Progress Note Date: 05/27/19 Chelsey is seen and evaluated this point. She is overall doing very well. Her pain is well-controlled. She is ambulating minimally will increase and ablation today. Full catheter was out and we are anticipating her voiding soon. Her vital signs are stable and she is afebrile. Heart regular, lungs clear, extremities without pain. Abdomen soft with incisional tenderness. Dressing was left in place today. We'll plan to increase ambulation later today. Advance diet as tolerated. Discontinue ENVIRONMENTAL ASSOCIATE pump this evening and address change clerk to [place]. We'll plan for hopeful discharge in the next 24-48 hours depending on how she is doing. All questions were answered for her at this time and she is again stable at this time.
[2019-05-27] MEDS ORDERED: HYDROcodone/APAP 7.5-325MG 1 EACH TAB PO PRN (17:48)
[2019-05-27] MEDS: LACTATED RINGERS 1,000 ML IV SCH (23:51)
[2019-05-28] MEDS: KETOROLAC 30 MG/ML 1 ML VIAL IVP PRN (02:07)
[2019-05-28] MEDS: LACTATED RINGERS 1,000 ML IV SCH (05:36)
--- NOTE | 2019-05-28 05:43 | P.PN ---
Progress Note - Text Progress Note Date: 05/28/19 Postoperative day #2. Patient is resting without new complaints. She wishes to go home. Vital signs are stable she's afebrile. She is ambulating and urinating and tolerating regular diet without difficulty. Incision is intact and dry. My impression is she is having a normal postoperative course. Plan is to continue routine postoperative care discharge home later this morning.
--- NOTE | 2019-05-28 05:52 | P.DS ---
Providers Date of admission: 05/26/19 17:46 Expected date of discharge: 05/28/19 Attending physician: Hernesto Gonzalez Primary care physician: [facility] Course: Please see dictated H&P for intimate details of this patient's admission. Brief summary this is a pleasant 39-year-old female presented to the emergency department with complaints of abdominal pain is found to have a ruptured left ectopic . She underwent an exploratory laparotomy with left partial salpingectomy and occlusion of the right fallopian tube for family planning as well. Postoperative patient did well on postoperative #2 she felt be stable for discharge home follow up with me in 1 week. Procedures: Exploratory laparotomy, left partial salpingectomy, right fallopian tube occlusion. Patient Condition at Discharge: Good Plan - Discharge Summary New Discharge Prescriptions: New Docusate [Colace] 100 mg PO BID PRN #60 capsule PRN Reason: Constipation HYDROcodone/APAP 7.5-325MG [[place] 7.5-325] 1 each PO Q6H PRN #12 tab PRN Reason: moderate Pain when taking po Continue Ibuprofen [Motrin] 800 mg PO TID PRN #30 tab PRN Reason: Pain Discharge Medication List Docusate [Colace] 100 mg PO BID PRN #60 capsule 05/28/19 [Rx] HYDROcodone/APAP 7.5-325MG [[place] 7.5-325] 1 each PO Q6H PRN #12 tab 05/28/19 [Rx] Ibuprofen [Motrin] 800 mg PO TID PRN #30 tab 05/28/19 [Rx] Follow up Appointment(s)/Referral(s): Umair Cortez MD [STAFF PHYSICIAN] - 1 Week Patient Instructions/Handouts: Exploratory Laparotomy (DC), Ectopic (DC) Activity/Diet/Wound Care/Special Instructions: No heavy lifting or strenuous activity for 6 weeks. No intercourse or anything per vagina for 6 weeks. Please call if any fever, chills, excessive vaginal bleeding, and/or abdominal pain. Discharge Disposition: HOME SELF-CARE
[2019-05-28] MEDS ORDERED: IBUPROFEN 600 MG TAB PO STA (07:50)
[2019-05-28 10:13] VITALS: BP 126/72; PULSE 70; TEMP 99
== END 2019-05-28 08:40 | disposition home or self-care (01) | DRG 817 ==
LOC: EC 14:10 → 4FBP 17:46
PROVIDERS: ADMIT Obstetrics & Gynecology; ATTEND Obstetrics & Gynecology
PROC: 0UB60ZZ Excision of Left Fallopian Tube, Open Approach (ICD-10-PCS; principal; 2019-05-26 18:52)
PROC: 0WCG0ZZ Extirpation of Matter from Peritoneal Cavity, Open Approach (ICD-10-PCS; principal; 2019-05-26 18:52)
PROC: 0UL50CZ Occlusion of Right Fallopian Tube with Extraluminal Device, Open Approach (ICD-10-PCS; principal; 2019-05-26 18:52)
DX: O00.102 Left tubal pregnancy without intrauterine pregnancy (principal); K66.1 Hemoperitoneum; R00.0 Tachycardia, unspecified; I95.9 Hypotension, unspecified; Z3A.01 Less than 8 weeks gestation of pregnancy; Z88.0 Allergy status to penicillin; Z88.8 Allergy status to other drugs, medicaments and biological substances; Z90.49 Acquired absence of other specified parts of digestive tract; Z79.1 Long term (current) use of non-steroidal anti-inflammatories (NSAID); Z90.89 Acquired absence of other organs; Z98.890 Other specified postprocedural states; Z87.891 Personal history of nicotine dependence; Z87.442 Personal history of urinary calculi; Z85.41 Personal history of malignant neoplasm of cervix uteri
CPT/HCPCS: 36415; 74177; 76801; 80053; 81001; 81025; 82150; 83690; 84484; 84702; 85025; 85610; 85730; 86850; 86900; 86901; 86920; 88305; 93005

== ENCOUNTER → 2020-02-28 | Outpatient (CLI) | payer BC, OTHER ==
--- NOTE | 2020-02-29 01:27 | SFUN ---
SLEEP CENTER FOLLOW UP NOTE DATE OF SERVICE: 02/28/2020 A 39-year-old lady who has been followed in the sleep center for treatment of obstructive sleep apnea-hypopnea syndrome patient. The patient successfully continuing to use her CPAP equipment every night for the whole night. Does not snore, although she increased her weight quite significantly since the previous visit. [place] Sleepiness Scale is 4 only, which is normal. I checked her CPAP unit. Range of the pressure 8 to 15. Usage is 100% of the time more than 4 hours. Average usage 8.2 hours per night. Leak was 2 L/minute only. Apnea- hypopnea index 0.7, which is perfect. MEDICATIONS: control pills. PHYSICAL EXAMINATION: GENERAL: Patient in no distress. VITAL SIGNS: BP 141/73, HR 80, RR 15, height 5 feet 9 inches, weight 363, BMI 53.6, temperature 97.8, oxygen saturation at room air 98%. HEENT: PERRLA, EOMI. Oropharynx extremely low position of soft palate. NECK: Supple, no JVD. Thyroid is not palpable. LUNGS: Clear to percussion and to auscultation. Good air exchange. No wheezing or rhonchi. HEART: S1, S2 regular. No murmurs, gallops, or rubs. ABDOMEN: Obese. EXTREMITIES: No clubbing or cyanosis. OPERATIONAL TRAINER: Awake, alert, and oriented X3. Cranial nerves 2 to 7 intact. There is no fasciculation or atrophy. noted. No focal deficits observed. IMPRESSION: 1. Obstructive sleep apnea-hypopnea syndrome. Patient demonstrated great compliance with treatment, benefitting from treatment. 2. Obesity. Patient increased her weight about 30 pounds. Apnea-hypopnea index is in normal range. 3. History of cervical cancer, status post LEEP in 2004. 4. Status post tonsillectomy. 5. Status D and C. DECISION: We will keep the same range of pressure. PLAN: 1. Patient will continue to use PAP equipment every night for the whole night. 2. Sleep hygiene with regular time in bed for at least 7-1/2 to 8 hours. 3. Precautions related to driving. No driving if feeling sleepiness. 4. I will maintain all necessary prescription for PAP supplies including mask, tube, filters. 5. Watching weight. 6. No driving if feeling sleepiness. 7. Follow-up visit in 6 months or earlier if patient has any problems. Thank you very much for allowing me to participate in management of your patient. Sincerely, Axel Houston MD, PhD, FAASM Diplomat of [place] [employer] [place] [employer] Observer of [facility] MMODL / MARVA: [id number] /
== END | disposition home or self-care (01) ==
LOC: SLEEP 16:27
PROVIDERS: ATTEND Internal Medicine
DX: G47.33 Obstructive sleep apnea (adult) (pediatric) (principal); E66.9 Obesity, unspecified; Z85.41 Personal history of malignant neoplasm of cervix uteri; Z90.89 Acquired absence of other organs

== ENCOUNTER → 2020-04-08 | Outpatient (CLI) | payer BC, OTHER ==
--- NOTE | 2020-04-09 11:50 | MM ---
Reason for exam: screening (asymptomatic). Last mammogram was performed 4 years and 11 months ago. History: Patient has history of other cancer at age 23. Family history of breast cancer in mother at age 63. Physical Findings: A clinical breast exam by your physician is recommended on an annual basis and results should be correlated with mammographic findings. MG 3D Screening Mammo W/Cad Bilateral CC, MLO, and XCCL view(s) were taken. Prior study comparison: April 30, 2015, bilateral MG screening mammo w CAD. The breast tissue is heterogeneously dense. This may lower the sensitivity of mammography. Stable benign calcifications. There is no discrete abnormality. No significant changes when compared with prior studies. ASSESSMENT: Benign, BI-RAD 2 RECOMMENDATION: Routine screening mammogram of both breasts in 1 year.
== END | disposition home or self-care (01) ==
LOC: RADMAMWWP 13:46
PROVIDERS: ATTEND Obstetrics & Gynecology
DX: Z12.31 Encounter for screening mammogram for malignant neoplasm of breast (principal)
CPT/HCPCS: 77063; 77067

== ENCOUNTER → 2020-06-12 | Outpatient (CLI) | payer BC, OTHER ==
--- NOTE | 2020-06-12 15:56 | US ---
EXAMINATION TYPE: US transvaginal DATE OF EXAM: 06/12/2020 COMPARISON: NONE CLINICAL HISTORY: N93.8 Dysfunctional uterine bleeding. DUB TECHNIQUE: Transvaginal (TV). EXAM MEASUREMENTS: Uterus: 8.5 x 4.4 x 5.0 cm Endometrial Stripe: .8 cm Right Ovary: 5.6 x 3.9 x 5.0 cm 1. Uterus: Anteverted wnl 2. Endometrium: wnl 3. Right Ovary: 5.2 x 3.7 x 4.3 cm cystic areas. 4. Left Ovary: Obscured by overlying bowel gas 5. Bilateral Adnexa: wnl 6. Posterior cul-de-sac: wnl IMPRESSION: Probable functional right ovarian cyst which can be confirmed with follow-up study in 6 weeks.
== END | disposition home or self-care (01) ==
LOC: RADUSWWP 14:53
PROVIDERS: ATTEND Obstetrics & Gynecology
DX: N93.8 Other specified abnormal uterine and vaginal bleeding (principal)
CPT/HCPCS: 76830

== ENCOUNTER 2021-01-09 22:19 | Emergency (ER) | payer BC, OTHER ==
[2021-01-09 23:01] VITALS: BP 154/90; PULSE 81; RESP 20; TEMP 98.3
--- NOTE | 2021-01-09 23:47 | XR ---
EXAMINATION TYPE: XR foot complete RT DATE OF EXAM: 01/09/2021 COMPARISON: NONE HISTORY: Fall. Pain TECHNIQUE: 3 views FINDINGS: There is an acute large chip fracture at the lateral base of the proximal phalanx of the bi g toe right foot. There is no dislocation. There is some soft tissue swelling. There is small plantar and Achilles calcaneal spurs. Metatarsals are intact. IMPRESSION: Acute 12 mm intra-articular chip fracture of the base of the proximal phalanx of the big toe right foot.
--- NOTE | 2021-01-09 23:48 | XR ---
EXAMINATION TYPE: XR ankle complete RT DATE OF EXAM: 01/09/2021 COMPARISON: NONE HISTORY: Fall. Pain. TECHNIQUE: 3 views FINDINGS: Ankle mortise is anatomic. There is mild soft tissue swelling around the ankle. There is pl deisi and Achilles calcaneal spurring. IMPRESSION: Minimal calcaneal spurring. No evidence of ankle fracture.
[2021-01-10] MEDS ORDERED: ACET/COD 300 MG/30 MG STARTER PACK 6 TAB BTL PO STA (01:24)
--- NOTE | 2021-01-10 01:27 | ED ---
Fall HPI - General Chief Complaint: Fall Stated Complaint: Fall-R foot injury Time Seen by Provider: 01/10/21 01:19 Source: patient Mode of arrival: ambulatory - History of Present Illness Initial Comments: 40-year-old female presents to the emergency department with a chief complaint of right foot injury. Patient reports incident occurred about one hour prior to arrival. Patient reports her foot went through the porch. Patient reports laceration to the right big toe and also mild ecchymosis in that region. Her states her tetanus is not up-to-date. However, she denies any numbness or tingling. States she still able to move all of her toes. She also reports some pain in the right ankle. Patient reports scraping her head but denies any loss of consciousness. Denies any blood thinners. - Related Data Previous Rx's Medication Instructions Recorded Docusate [Colace] 100 mg PO BID PRN #60 capsule 05/28/19 HYDROcodone/APAP 7.5-325MG [[place] 1 each PO Q6H PRN #12 tab 05/28/19 7.5-325] Ibuprofen [Motrin] 800 mg PO TID PRN #30 tab 05/28/19 Allergies Allergy/AdvReac Type Severity Reaction Status Date / Time bupropion HCl Allergy Rash/Hives Verified 01/09/21 23:01 [From Wellbutrin] Penicillins Allergy Unknown Verified 01/09/21 23:01 Childhood citalopram hydrobromide AdvReac VERY Verified 01/09/21 23:01 [From Celexa] AGGRESSIVE BEHAVIOR Review of Systems ROS Statement: Those systems with pertinent positive or pertinent negative responses have been documented in the HPI. ROS Other: All systems not noted in ROS Statement are negative. Past Medical History Past Medical History: No Reported History Additional Past Medical History / Comment(s): ectopic History of Any Multi-Drug Resistant Organisms: None Reported Past Surgical History: Section, Cholecystectomy, Tonsillectomy, Tubal Ligation Additional Past Surgical History / Comment(s): leep, exp lap , Past Psychological History: No Psychological Hx Reported Smoking Status: Never smoker Past Alcohol Use History: Occasional Past Drug Use History: None Reported - Past Family History Mother Family Medical History: No Reported History General Exam Limitations: no limitations General appearance: alert, in no apparent distress, obese Head exam: Present: atraumatic, normocephalic, normal inspection (Small scrape of the scalp.). Absent: other (Negative Aguirre sign, raccoon eyes, hemotympanum.) Eye exam: Present: normal appearance Pupils: Present: normal accommodation ENT exam: Present: normal exam, normal oropharynx, mucous membranes moist, TM's normal bilaterally, normal external ear exam Neck exam: Present: normal inspection, full ROM. Absent: tenderness Respiratory exam: Present: normal lung sounds bilaterally. Absent: respiratory distress Cardiovascular Exam: Present: regular rate, normal rhythm, normal heart sounds. Absent: systolic murmur Extremities exam: Present: full ROM (Full range of motion in all fingers), tenderness (Tenderness at the injured site), normal capillary refill, other (Palpable DP and PT bilaterally. Sensation intact in the right leg). Absent: normal inspection (Ecchymosis, swelling and a 3 cm laceration on the plantar aspect of the right big toe), pedal edema, joint swelling, calf tenderness Back exam: Present: normal inspection, full ROM. Absent: tenderness Neurological exam: Present: alert, oriented X3, CN II-XII intact, normal gait Psychiatric exam: Present: normal affect, normal mood Skin exam: Present: warm, dry, intact, normal color Course Vital Signs 01/09/21 22:55 Temperature 98.3 F Pulse Rate 81 Respiratory 20 Rate Blood Pressure 154/90 O2 Sat by Pulse 100 Oximetry Procedures - Laceration Laceration #1 Consent Obtained: verbal consent Indication: laceration Site: foot Size (cm): 3 Description: linear, clean Depth: simple, single layer Sedation/Analgesia: none Anesthetic Used: lidocaine 1% Anesthesia Technique: local infiltration Amount (mls): 4 Pre-repair: irrigated extensively, deep structures intact Type of Sutures: vicryl Size of Sutures: 4-0 Number of Sutures: 5 Technique: simple, interrupted Patient Tolerated Procedure: well, no complications Medical Decision Making - Medical Decision Making 40-year-old female presents to emergency Department with a chief complaint of foot injury. On physical examination, she has a laceration on the plantar aspect of the right big toe superficial, measuring approximately 3 cm. She is otherwise neurovascularly intact in the foot and is able to move her toes without any difficulties. Laceration site was thoroughly irrigated and repaired with 5 sutures. Patient's daughter procedure well. X-rays of the ankle are unremarkable. X-rays of the foot reveal an acute 12 mm intra-articular chip fracture at the base of the proximal phalanx of the big toe. Patient was given a postop shoe. She was also given some analgesics to help with the symptoms. Tetanus was updated. Patient was advised to follow with construction specialist. Return parameters were thoroughly discussed with patient was understanding and agreeable. Case discussed with physician. Disposition Clinical Impression: Fall, Toe fracture, right, Laceration Disposition: HOME SELF-CARE Condition: Stable Instructions (If sedation given, give patient instructions): Toe Fracture (ED) Additional Instructions: Follow-up with construction specialist. Return to emergency department if symptoms worsen. Is patient prescribed a controlled substance at d/c from ED?: No Referrals: Mohit Coulter DO [Primary Care Provider] - 1-2 days Flaquito Freitas MD [Medical Doctor] - 1-2 days Time of Disposition: 01:26
[2021-01-10] MEDS ORDERED: MORPHINE SULFATE 4 MG/ML SYRINGE IM STA (01:32)
[2021-01-10] MEDS ORDERED: LIDOCAINE 1% INJ 10MG/ML (20 ML MDV) SQ ONE (01:33)
[2021-01-10] MEDS ORDERED: DIPH,PERTUS(ACELL)TETVAC-LF 0.5 ML VIAL IM ONE (01:35)
== END 2021-01-10 02:53 | disposition home or self-care (01) ==
LOC: EC 22:19
DX: S92.411A Displaced fracture of proximal phalanx of right great toe, initial encounter for closed fracture (principal); Z88.8 Allergy status to other drugs, medicaments and biological substances; Z88.0 Allergy status to penicillin; Z23 Encounter for immunization; W19.XXXA Unspecified fall, initial encounter; Y92.89 Other specified places as the place of occurrence of the external cause
CPT/HCPCS: 73610; 73630; 90715; 99283; 12002; 96372; 90471; J2270; J2001

== ENCOUNTER 2021-02-11 12:57 | Day surgery (SDC) | payer BC, OTHER ==
[2021-02-10 11:36] VITALS: BMI 51.0
[~2021-02-11 12:57] MED LIST changes: +DEXAMETHASONE SOD PHOSPHATE 4 MG/ML 1 ML VIAL IV ONE; -HYDROmorphone (PF) 1 MG/ML ONE; +HYDROmorphone 0.5 MG/0.5 ML SYRINGE IVP PRN; -KETOROLAC 30 MG/ML 1 ML VIAL ONE; +LACTATED RINGERS 1,000 ML IV SCH; +LIDOCAINE 1% (10MG/ML) FOR IV START INTRADERMA PRN; -LIDOCAINE 1% INJ 10MG/ML (20 ML MDV) ONE; +MIDAZOLAM 2 MG/2 ML VIAL IV PRN; -MIDAZOLAM 2 MG/2 ML VIAL ONE; -NEOSTIGMINE 1 MG/ML 10 ML VIAL ONE; +ONDANSETRON 4 MG/2 ML VIAL IVP ONE; -PROPOFOL 10 MG/ML 20 ML VIAL IV ONE; -ROCURONIUM BROMIDE 10 MG/ML 5 ML VIAL IV ONE; +SCOPOLAMINE 1.5MG/72HR PATCH TRANSDERM ONE; -SUCCINYLCHOLINE CHLORIDE VIAL 200 MG/10 ML VIAL IV ONE; +ceFAZolin 3 GM in SODIUM CHLORIDE 0.9% 100 ML IVPB PRN; +fentaNYL (PF) 50 MCG/ML 2 ML AMP IVP PRN; -fentaNYL (PF) 50 MCG/ML 2 ML AMP ONE
[2021-02-11 13:39] VITALS: RESP 16
[2021-02-11] MEDS ORDERED: LIDOCAINE 1% INJ 10MG/ML (20 ML MDV) ONE (16:09)
[2021-02-11] MEDS ORDERED: SUCCINYLCHOLINE CHLORIDE VIAL 200 MG/10 ML VIAL IV ONE (16:09)
[2021-02-11] MEDS ORDERED: MIDAZOLAM 2 MG/2 ML VIAL ONE (16:09)
[2021-02-11] MEDS ORDERED: fentaNYL (PF) 50 MCG/ML 2 ML AMP ONE (16:09)
[2021-02-11] MEDS ORDERED: PROPOFOL 10 MG/ML 20 ML VIAL IV ONE (16:09)
[2021-02-11] MEDS ORDERED: BUPIVACAINE (PF) 0.25% 30 ML VIAL MISCELLANE ONE (16:30)
--- NOTE | 2021-02-11 17:38 | P.OP ---
Date of Procedure: 02/11/21 Preoperative Diagnosis: Displaced, intra-articular fracture of the proximal phalanx right great toe Postoperative Diagnosis: Same Procedure(s) Performed: Open reduction with internal fixation right great toe fracture Implants: (2) 2.0 mm x 20 mm cortical screws Anesthesia: KANCHANA Surgeon: Timothy Callaway Estimated Blood Loss (ml): 3 Pathology: none sent Condition: stable Disposition: PACU Operative Findings: The large plantar lateral fragment was also comminuted once the area was exposed Description of Procedure: The patient was brought into the operating room and placed on table supine position. Was taken to confirm correct patient identifiers, correct procedure, and correct site of surgery. When all staff in the room were in agreement, the patient was induced and placed under general anesthesia. A well-padded tourni quet was placed on the right calf and then 20 mL of 0.25% Marcaine was injected as a posterior tibial nerve block as well as a forefoot block and then the left foot was prepped and draped in usual manner. The leg was exsanguinated with an Esmarch bandage and the tourniquet inflated to 250 mmHg. Attention was directed over the dorsal lateral aspect of the first metatarsal phalangeal joint, and linear incision was made between the neurovascular structures and the extensor hallucis longus tendon. The incision was deepened down to the subcutaneous tissue careful to identify, avoid, and retract any neurovascular structures and cauterize any bleeding vessels. Blunt dissection was then continued down to the joint capsule and periosteum. An incision was made to the capsule and periosteum just lateral to the extensor hallucis longus tendon. Subperiosteal dissection was performed to expose the area fracture. The fracture line was obvious was able to be easily . Various instrumentation was used to remove any soft tissue and hematoma between the fracture fragments. It was noted that the larger fragment also had 2 areas of comminution one more year dorsal and the other more lateral. The bone was also quite soft and easily friable. A lung reduction clamp was used to realign the fracture. Fluoroscopy was used to confirm the overall alignment. Once alignment was achieved a guidewire was placed across the fracture site for temporary fixation. And then drill holes for 2.0 mm cortical screws were made from dorsal medial to plantar lateral crossing the fracture site. 2 screws were placed allow for compression and prevent rotation. Fluoroscopic imaging showed improved reduction of the fracture with improved contour of the articular surface of the base of the proximal phalanx. The guidewire was removed and then the area irrigated thoroughly. Deep closure was done with 3-0 Vicryl. Subcutaneous closure was done with 4-0 Monocryl. Skin closure was done with4-0 Stratafix in a running subcuticular manner. Dermal glue was applied to the incisions and allowed to dry. Steri-Strips are placed across incisions. Nonadherent gauze placed over the incision then an bulky dry dressings applied to the right foot. The tourniquet was released and capillary refill return to all digits on right foot. The patient was then placed in a below-knee fracture boot with ankle neutral position. Anesthesia was reversed and the patient was taken recovery with vital signs stable.
[2021-02-11 17:40] VITALS: TEMP 97.5
[2021-02-11] MEDS ORDERED: KETOROLAC 15 MG/ML 1 ML VIAL ONE (18:31)
[2021-02-11] MEDS ORDERED: KETOROLAC 15 MG/ML 1 ML VIAL IVP ONE (18:34)
[2021-02-11 18:44] VITALS: BP 171/102; PULSE 97
== END 2021-02-11 19:07 | disposition home or self-care (01) ==
LOC: OR 12:57
PROVIDERS: ATTEND Podiatrist
DX: S92.411A Displaced fracture of proximal phalanx of right great toe, initial encounter for closed fracture (principal); X58.XXXA Exposure to other specified factors, initial encounter; E78.5 Hyperlipidemia, unspecified; R63.5 Abnormal weight gain; K30 Functional dyspepsia; Z85.41 Personal history of malignant neoplasm of cervix uteri; Z97.3 Presence of spectacles and contact lenses; Z88.0 Allergy status to penicillin; Z98.891 History of uterine scar from previous surgery; Z98.51 Tubal ligation status; Z98.890 Other specified postprocedural states; Z83.3 Family history of diabetes mellitus; Z82.49 Family history of ischemic heart disease and other diseases of the circulatory system; Z87.891 Personal history of nicotine dependence; G47.33 Obstructive sleep apnea (adult) (pediatric); Z88.8 Allergy status to other drugs, medicaments and biological substances
CPT/HCPCS: 81025; 28505; C1713; J2250; J0330; J1100; J0690; J2405; J2001; J3010; J1885; J2704

== ENCOUNTER → 2021-05-08 | Outpatient (CLI) | payer BC, OTHER ==
--- NOTE | 2021-05-08 13:02 | MM ---
Reason for exam: screening (asymptomatic). Last mammogram was performed 1 year and 1 month ago. History: Patient has history of other cancer at age 23. Family history of breast cancer in mother at age 63. Physical Findings: A clinical breast exam by your physician is recommended on an annual basis and results should be correlated with mammographic findings. MG 3D Screening Mammo W/Cad Bilateral CC and MLO view(s) were taken. Prior study comparison: April 08, 2020, bilateral MG 3d screening mammo w/cad. April 30, 2015, bilateral MG screening mammo w CAD. There are scattered fibroglandular densities. Finding #1: There is a 7 mm obscured round mass in the outer quadrant, anterior position of the left breast. Finding #2: There are typically benign round calcifications in both breasts. ASSESSMENT: Incomplete: need additional imaging evaluation, BI-RAD 0 RECOMMENDATION: Ultrasound of the left breast. [facility] will attempt to contact patient to return for ultrasound.
== END | disposition home or self-care (01) ==
LOC: RADMAMWWP 07:21
PROVIDERS: ATTEND Obstetrics & Gynecology
DX: Z12.31 Encounter for screening mammogram for malignant neoplasm of breast (principal)
CPT/HCPCS: 77063; 77067

== ENCOUNTER → 2021-05-18 | Outpatient (CLI) | payer BC, OTHER ==
--- NOTE | 2021-05-18 09:40 | USB ---
Reason for exam: additional evaluation requested from abnormal screening. History: Patient has history of other cancer at age 23. Family history of breast cancer in mother at age 63. Physical Findings: Nurse did not find any significant physical abnormalities on exam. US Breast Workup Limited LT Left limited breast ultrasound including focal area of concern, retroareolar and axilla demonstrates a 0.7 x 0.6 x 0.5cm cystic lesion at 2 o'clock, a 1.0 x 0.8 x 1.4cm cystic cluster at 3 o'clock and a 1.0 x 0.5 x 0.9cm mixed, oval, circumscribed lesion at 5 o'clock with through transmission, possible fibroadenoma, 6 month follow up. These results were verbally communicated with the patient and result sheet given to the patient on 05/18/21. ASSESSMENT: Probably benign, BI-RAD 3 RECOMMENDATION: Follow-up diagnostic mammogram and ultrasound of the left breast in 6 months.
== END | disposition home or self-care (01) ==
LOC: RADUSWWP 08:07
PROVIDERS: ATTEND Obstetrics & Gynecology
DX: R92.8 Other abnormal and inconclusive findings on diagnostic imaging of breast (principal)

== ENCOUNTER → 2021-11-16 | Outpatient (CLI) | payer BC, OTHER ==
--- NOTE | 2021-11-16 15:21 | MM ---
Reason for Exam: Follow-up at short interval from prior study. Last screening mammogram was performed 7 month(s) ago. Patient History: Menarche at age 12. First Full-Term at age 22. Other cancer, age 23. Currently using Hormonal Contraceptives, starting at age 18. Mother had breast cancer, age 63. Last menstrual period: 11/08/2021 Risk Values: [place] 5 year model risk: 1.2%. NCI Lifetime model risk: 18.2%. Prior Study Comparison: 04/30/2015 Bilateral Screening Mammogram, [facility]. 04/08/2020 Bilateral Screening Mammogram, [facility]. 05/08/2021 Bilateral Screening Mammogram, [facility]. Tissue Density: Left: There are scattered fibroglandular densities. Findings: Analyzed By CAD. Nodularity lateral subareolar left breast is redemonstrated. One of these areas measuring 1.1 cm a similar to slightly larger. A second isodense circumscribed areas now apparent as well just adjacent. Repeat ultrasound recommended. Circumscribed margins is suggestive of a benign etiology. Overall Assessment: Incomplete: need additional imaging evaluation, BI-RAD 0 Management: Diagnostic Breast Ultrasound of the left breast. For the lateral subareolar left breast nodularity. Electronically signed and approved by: Paolo Vieira M.D. Radiologist
--- NOTE | 2021-11-16 15:32 | USB ---
Reason for Exam: Follow-up at short interval from prior study. Patient History: Menarche at age 12. First Full-Term at age 22. Other cancer, age 23. Currently using Hormonal Contraceptives, starting at age 18. Mother had breast cancer, age 63. Risk Values: Chrissy 5 year model risk: 1.2%. NCI Lifetime model risk: 18.2%. Technique: Method: Targeted. Prior Study Comparison: 04/30/2015 Bilateral Screening Mammogram, [facility]. 04/08/2020 Bilateral Screening Mammogram, [facility]. 05/08/2021 Bilateral Screening Mammogram, [facility]. Findings: The upper outer quadrant of the left breast, the lower outer quadrant of the left breast, the axilla of the left breast and the retroareolar of the left breast were scanned. Targeted lateral left breast ultrasound 1:00 to 6:00 including the axilla and subareolar region. At the 2:00 position, 4 cm from the nipple, there is redemonstration of a benign 7 mm cyst. At 3:00, 8 cm from the nipple, there is a benign-appearing 6 x 5 x 3 mm cyst, not seen previously. Behind the nipple, there is a suspicious cluster measuring 1.1 x 0.8 x 0.8 cm, previously measuring 1.4 cm. The previously seen lobulated area at the 5:00 position is no longer identified. Six-month follow-up left breast mammogram is recommended.. Overall Assessment: Probably benign, BI-RAD 3 Management: Diagnostic Mammogram of both breasts in 6 months. 1. For reassessment of the lateral subareolar nodularity in the left breast. Annual exam of the right breast. 2. Patient should continue monthly self breast exams. A clinical breast exam by your physician is recommended on an annual basis. 3. This exam should not preclude additional follow-up of suspicious palpable abnormalities. Electronically signed and approved by: Paolo Vieira M.D. Radiologist
== END | disposition home or self-care (01) ==
LOC: RADMAMWWP 14:19
PROVIDERS: ATTEND Obstetrics & Gynecology
DX: R92.8 Other abnormal and inconclusive findings on diagnostic imaging of breast (principal)
CPT/HCPCS: 77061; 77065

== ENCOUNTER → 2021-12-31 | Outpatient (CLI) | payer BC, OTHER ==
[2021-12-31 14:14] VITALS: BP 163/89; PULSE 79; RESP 18; TEMP 98.7
--- NOTE | 2021-12-31 14:38 | P.GSHP ---
History of Present Illness H&P Date: 12/31/21 Chief Complaint: abnormal left breast ultrasound Chelsey is a 41 year old white female seen in consultation for Dr. Ribeiro regarding a radiographic abnormality in her left breast. The mammogram and ultrasound were personally reviewed with DR. Muller. She had a bilateral m ammogram on 05-18-21 after which repeat left breast mammogram and ultrasound wre done on 11-16-21. No lesions of concern were noted in the right breast. She had cystic lesionsl noted in the left breast and reapeat bilateral mammogram in 6 months was recommended. The patient does not feel any lumps masses or notches of concern in either breast. She has not had any surgery on her breast. She's not had any recent trauma or infection in the breast. She is not complaining of any abnormal nipple discharge. Caffeine: 12 oz QOD nicotine: stopped 20 years ago, 1/2 PPD for 10 years chocolate: occasional BCP: taking them now, on them for 2 years; to control bleeding she is seeing DR. Noriega () Family History: mother: breast cancer at 63; uterine cancer in 40's maternal grandmother: uterine cancer Hormonal History: menarche: 12 E1, age at : 21, breast fed: yes 6 weeks periods irregular on BCP; using BCP for bleeding Surgical History: LEAP for HPV precancer cells bottom 1/2 of cervix removed ectopic 2019; fallopian tube burst and ruptured uterus 2019 tonsil toe right foot Medical History: none Social History: nicotine: stopped 20 years ago alcohol: occasional drugs: none - Constitutional Constitutional: Denies chills, Denies fever - EENT Eyes: denies blurred vision, denies pain Ears: deny: decreased hearing, tinnitus Ears, nose, mouth and throat: Denies headache, Denies sore throat - Breasts Breasts: bilateral: as per HPI - Cardiovascular Cardiovascular: Denies chest pain, Denies shortness of breath - Respiratory Respiratory: Denies cough, Denies 7 - Gastrointestinal Gastrointestinal: Denies abdominal pain, Denies diarrhea, Denies nausea, Denies vomiting - Genitourinary (Female) Genitourinary: Denies dysuria, Denies hematuria - Menstruation Menstruation: Reports as per HPI - Musculoskeletal Musculoskeletal: Denies myalgias - Integumentary Integumentary: Denies pruritus, Denies rash - Neurological Neurological: Denies numbness, Denies weakness - Psychiatric Psychiatric: Reports anxiety, Denies depression - Endocrine Endocrine: Denies fatigue, Denies weight change - Hematologic/Lymphatic Comment: none - Allergic/Immunologic Allergic/Immunologic: Reports seasonal allergies Past Medical History Past Medical History: Cancer, Musculoskeletal Disorder Additional Past Medical History / Comment(s): cervical cancer 2004-had procedure, ectopic 2019, fell & lacerated right big toe couple weeks ago-wearing boot History of Any Multi-Drug Resistant Organisms: None Reported Past Surgical History: Section, Cholecystectomy, Tonsillectomy, Tubal Ligation Additional Past Surgical History / Comment(s): leep procedure, exp laparotomy Past Anesthesia/Blood Transfusion Reactions: No Reported Reaction Past Psychological History: ADD/ADHD Smoking Status: Former smoker Past Alcohol Use History: Rare Additional Past Alcohol Use History / Comment(s): quit smoking 18 yrs. ago, smoked 5 yrs. 1ppd Past Drug Use History: None Reported - Past Family History Mother Family Medical History: No Reported History Medications and Allergies Home Medications Medication Instructions Recorded Confirmed Type norethindrone-e.estradioL-iron 1 tab PO DAILY 12/31/21 12/31/21 History [Junel Fe 1 mg-20 Mcg Tablet] Allergies Allergy/AdvReac Type Severity Reaction Status Date / Time bupropion HCl Allergy Rash/Hives Verified 12/31/21 14:05 [From Wellbutrin] Penicillins Allergy Unknown Verified 12/31/21 14:05 Childhood citalopram hydrobromide AdvReac VERY Verified 12/31/21 14:05 [From Celexa] AGGRESSIVE BEHAVIOR Surgical - Exam Vital Signs Temp Pulse Resp BP Pulse Ox 98.7 F 79 18 163/89 95 12/31/21 14:10 12/31/21 14:10 12/31/21 14:10 12/31/21 14:10 12/31/21 14:10 BMI: 53.4 - General moderate distress - Eyes normal ocular movement - Neck trachea midline - Respiratory normal respiratory effort, clear to auscultation - Cardiovascular Rhythm: regular Heart Sounds: normal: S1, S2 - Abdomen Abdomen: soft, non tender, no guarding, no rigid, no rebound - Integumentary no rash, no abnormal pigmentation - Neurologic no disoriented, no combative - Musculoskeletal normal gait - Psychiatric oriented to time, oriented to person, oriented to place, speech is normal, memory intact Breast Exam: BRA: 40D Inspection: bilateral grade 3 ptosis Outpatient: Right breast: Multiple positional exam fibrocystic changes no dominant masses or nodules of concern Right axilla: No adenopathy of concern Left breast: Multi-positional exam fibrocystic changes no dominant masses or nodules of concern Left axilla: No adenopathy of concern Results Mammogram and ultrasound reviewed in person with Dr. Muller appears to have fibrocystic changes in the left breast nothing which would warrant biopsy at this time Assessment and Plan Assessment: Impression: Fibrocystic breast changes Family history of breast cancer Plan: Consider genetic testing Bilateral mammogram with physician exam in 6 months Patient to follow up sooner any questions or concerns The hormones in the control pills may be contributing to cystic changes in the breast we have discussed this. At the present time the patient will most likely need to continue on the control pills. CC: DR. Seema Ribeiro
== END | disposition home or self-care (01) ==
LOC: WWCWWP 13:56
PROVIDERS: ATTEND Surgery
DX: Z53.9 Procedure and treatment not carried out, unspecified reason (principal)

== ENCOUNTER → 2022-07-14 | Outpatient (CLI) | payer BC, OTHER ==
--- NOTE | 2022-07-14 11:06 | P.PN ---
Subjective DATE: 07/14/2022 FOLLOW UP VISIT. Patient with obstructive sleep apnea hypopnea syndrome return to sleep center for follow-up visit. Information from previous visit have been reviewed. Patient is using PAP equipment every night for the whole night, getting PAP supplies in time. The patient does not have significant problems with the mask, PAP unit and humidification. [place] sleepiness scale is 13, which may indicate sleepiness. I checked information from PAP unit. PAP unit pressure 8-15, average 11.2 cm H2O. Usage is 100 % for more then 4 hours, average 8.5 hours per night. Leak is 2.3 l/m, which is in great range. Apnea Hypopnea Index is 0.8, which is normal. MEDICATIONS:1. , Carbamazepine 100 mg once a day During physical exam: GENERAL: A pleasant patient without any distress. VITAL SIGNS: BP 146/77, HR 80, RR 18 , weight 380.6, patient increased weight and 17 pounds, temperature 98.2, oxygen saturation at room air 97 % . HEENT: PERRLA, EOMI.low position of soft palate, Mallapati 3 . NECK: Supple. No JVD. LUNGS: Clear to percussion and to auscultation. Good air exchange. No wheezing or rhonchi. HEART: S1, S2 regular. ABDOMEN: Soft and nontender. Obese EXTREMITIES: No clubbing or cyanosis. ACCOUNT SUPPORT ANALYST: Awake, alert, and oriented x3. No focal deficit. Impressions: 1. Obstructive sleep apnea-hypopnea syndrome. Patient demonstrated great compliance with treatment, benefiting from treatment. 2. Obesity, patient increased her weight 117 pounds comparing her previous visit. 3. History of anxiety. 4. History of cervical cancer status post LEEP in 2004. 5. Status post tonsillectomy. 6. Status post D&C. Plan: 1. Continue using PAP equipment every night for the whole night. 2. To change air filter at least 1-2 times per month. 3. PAP unit should stay lower then position of the head. 4. Advised patient to remove all remaining water from humidifier canister daily and make it dry after each usage. Refill canister with fresh distilled water before each usage. 5. Sleep hygiene with regular time in bed for at least 8 hours. 6. Precautions related to driving. No driving if feel any sleepiness. 7. I will maintain prescription for PAP supplies including mask, tube, filters. 8. Follow up visit in 6 months or earlier if patient has any problems. 9. Watching and losing weight. Thank you very much for allowing me to participate in the management of your patient. Axel Houston MD, PhD, FAASM. Diplomat of [place] [employer], Sleep Medicine Board by [place] [employer] Insurance Application Investigator of [facility] [place]
== END ==
LOC: SLEEP 10:15
PROVIDERS: ATTEND Internal Medicine
DX: G47.33 Obstructive sleep apnea (adult) (pediatric) (principal); E66.9 Obesity, unspecified; Z68.41 Body mass index [BMI] 40.0-44.9, adult; Z86.59 Personal history of other mental and behavioral disorders; Z99.89 Dependence on other enabling machines and devices; Z88.0 Allergy status to penicillin; Z88.8 Allergy status to other drugs, medicaments and biological substances; Z87.891 Personal history of nicotine dependence
CPT/HCPCS: 99212

== ENCOUNTER → 2022-08-16 | Outpatient (CLI) | payer BC, OTHER ==
--- NOTE | 2022-08-16 12:33 | NM ---
"EXAMINATION TYPE: NM stress cardiolite complete DATE OF EXAM: 08/16/2022 COMPARISON: NONE CLINICAL INDICATION: Female, 42 years old with history of I44.0; I51.7; TECHNIQUE: After the intravenous administration of 10.8 mCi Tc 99m Sestamibi - Rest images obtained 45 minutes post injection. The patient exercised using a KRISTINE protocol and 1 minute prior to peak exercise was injected with 26.4 mCi Tc 99m Sestamibi - Stress images obtained 20 minutes post injecti on. FINDINGS: Targeted heart rate was achieved during performance of the study. Review of stress and rest SPECT allie ges demonstrates question of a tiny area of stress-induced reversibility involving the anterior wall. Gated analysis shows normal wall motion with an estimated left ventricular ejection fraction of 48 %. IMPRESSION: 1. Could not exclude a tiny area of stress-induced reversible ischemia involving the anterior wall. C orrelate clinically. A Yellow level critical message alert has been initiated for Su Cloud MD via the [employer] 36 0 | Critical Results System on 08/16/2022 12:31 PM. This message alert has been sent to Su Cloud MD via the preferences provided by the clinician for the receipt of Radiology Critical Findings. [facility] ID [id number]."
--- NOTE | 2022-08-16 12:35 | CA ---
Exercise Nuclear Stress Test Report Name: Chelsey Selby Exam Date: 08/16/2022 11:22 Exam Location: [place] Stress Ht (in): 69 Wt (lb): 374 BSA: 2.70 Ordering Phys: Nohemi Gomes MD Referring Phys: CANDIE, Technologist: Smith Fernández Age: 42 Gender: F : 1980 Procedure CPT: Indications: I44.0; I51.7 ICD-10 Codes: Patient History: Medications: Meds past 24 hrs: Pretest Chest Pain: STRESS TEST Chi Protocol Exercise Duration (min:sec): 04:[address] Depressions (mm): Angina Score: Mckinney Score: Resting HR (bpm): 97 Peak HR (bpm): 169 Resting BP (mmHg): 119 / 81 Peak BP (mmHg): 207 / 97 MPHR: 178 Target HR: 151 % MPHR: 95 METS: 7.1 Total Dose: Peak Dose: Atropine: Double Product: 38463 BP Response: Stress Termination: TARGET HR REACHED/MAX EXERTION Stress Symptoms: SHORT OF BREATH Stress Summary: ECG ANALYSIS Resting ECG: Sinus rhythm. Normal conduction. No arrhythmias. Normal repolarization. Stress ECG: No ECG changes from baseline with Lexiscan infusion. CONCLUSIONS No ECG evidence of ischemia with Lexiscan infusion. Nuclear test results to follow. Dr. Su Cloud MD (Electronically Signed) Final Date: 16 Aug 2022 12:34
== END | disposition home or self-care (01) ==
LOC: RADNMMAIN 08:10
PROVIDERS: ATTEND Family Medicine
DX: I44.0 Atrioventricular block, first degree (principal); I51.7 Cardiomegaly
CPT/HCPCS: 93017; 78452; A9500

== ENCOUNTER → 2022-08-27 | Outpatient (CLI) | payer BC, OTHER ==
[2022-08-27 20:46] LABS: Basophils # (A) 0.05 X 10*3/uL (0.00-0.10); Basophils % (A) 0.5 %; Eosinophils # (A) 0.12 X 10*3/uL (0.04-0.35); Eosinophils % (A) 1.3 %; HCT 39.3 % (37.2-46.3); HGB 12.5 g/dL (12.0-15.0); Immature Grans, Automated 0.2 %; Lymphocytes # (A) 3.42 X 10*3/uL (0.90-5.00); MCH 28.7 pg (27.0-32.0); MCHC 31.8 g/dL (32.0-37.0); MCV 90.3 fL (80.0-97.0); Mean Platelet Volume 9.7 fL (9.5-12.2); Monocytes % (A) 7.4 %; NRBC Per 100 WBC 0 /100 WBCS (0.0-0.0); Neutrophils # (A) 5.18 X 10*3/uL (1.80-7.70); Neutrophils % (A) 54.6 %; Platelet Count 339 X 10*3/uL (140-440); RBC 4.35 X 10*6/uL (4.10-5.20); RDW 13.4 % (11.5-14.5); WBC 9.49 X 10*3/uL (4.50-10.00)
[2022-08-27 21:07] LABS: Anion Gap 13.6 mmol/L (10.00-18.00); Blood Urea Nitrogen 11.2 mg/dL (9.0-27.0); Carbon Dioxide 24.9 mmol/L (20.0-27.5); Non-African American GFR(CKD) 107.8 (60.0-200.0)
== END | disposition home or self-care (01) ==
LOC: LABPAT 10:37
PROVIDERS: ATTEND Internal Medicine Interventional Cardiology
DX: Z01.812 Encounter for preprocedural laboratory examination (principal); R94.39 Abnormal result of other cardiovascular function study
CPT/HCPCS: 80051; 82565; 84520; 85025

== ENCOUNTER 2022-09-02 10:30 | Day surgery (SDC) | payer BC, OTHER ==
[2022-08-30 15:06] VITALS: BMI 56.5
[~2022-09-02 10:30] MED LIST changes: +ALPRAZolam 0.25 MG TAB PO PRN; +ALPRAZolam 0.5 MG TAB PO PRN; +ASPIRIN 325 MG TAB PO STA; +ATORVASTATIN 80 MG TAB PO STA; -DEXAMETHASONE SOD PHOSPHATE 4 MG/ML 1 ML VIAL IV ONE; +HEPARIN SODIUM,PORCINE 10,000 UNIT in SODIUM CHLORIDE 0.9% 1,000 ML IRRIGATION PRN; +HEPARIN SODIUM,PORCINE 2,500 UNIT in SODIUM CHLORIDE 0.9% 250 ML IRRIGATION PRN; -HYDROmorphone 0.5 MG/0.5 ML SYRINGE IVP PRN; -LACTATED RINGERS 1,000 ML IV SCH; -LIDOCAINE 1% (10MG/ML) FOR IV START INTRADERMA PRN; -MIDAZOLAM 2 MG/2 ML VIAL IV PRN; +NITROGLYCERIN SL TABS 0.4 MG TAB SUBLINGUAL PRN; -ONDANSETRON 4 MG/2 ML VIAL IVP ONE; -SCOPOLAMINE 1.5MG/72HR PATCH TRANSDERM ONE; +SODIUM CHLORIDE 0.9% 1,000 ML in EMPTY BAG 1 BAG IV SCH; -ceFAZolin 3 GM in SODIUM CHLORIDE 0.9% 100 ML IVPB PRN; -fentaNYL (PF) 50 MCG/ML 2 ML AMP IVP PRN
[2022-09-02 11:05] VITALS: RESP 18
[2022-09-02] MEDS ORDERED: VERAPAMIL 2.5 MG/ML 2 ML AMP ONE (11:30)
[2022-09-02] MEDS ORDERED: HEPARIN SODIUM 1,000 UN/ML (10ML VL) ONE (11:30)
[2022-09-02] MEDS ORDERED: fentaNYL (PF) 50 MCG/ML 2 ML AMP ONE (11:39)
[2022-09-02] MEDS ORDERED: MIDAZOLAM 2 MG/2 ML VIAL IV ONE (11:51)
[2022-09-02] MEDS ORDERED: fentaNYL (PF) 50 MCG/ML 2 ML AMP IV ONE (11:52)
[2022-09-02] MEDS ORDERED: LIDOCAINE 1% INJ 10MG/ML (5 ML VIAL-PF) SQ ONE (11:53)
[2022-09-02] MEDS ORDERED: VERAPAMIL SYRINGE (5 MG/10 ML) INTRAARTER ONE (11:55)
[2022-09-02] MEDS ORDERED: HEPARIN SODIUM 1,000 UN/ML (10ML VL) IV ONE (12:00)
[2022-09-02] MEDS ORDERED: IOPAMIDOL-370 100ML BTL INJ ONE (12:04)
[2022-09-02] MEDS ORDERED: RX INFO: IV CONTRAST WAS GIVEN 1 EACH MISC MISCELLANE PRN (12:14)
[2022-09-02] MEDS ORDERED: SODIUM CHLORIDE 0.9% 1,000 ML IV SCH (12:15)
--- NOTE | 2022-09-02 12:19 | P.CARDCATH ---
Date of Procedure: 09/02/22 Description of Procedure: Cardiac Catheterization: The patient is a 42-year-old female who has been complaining of dyspnea on exertion and is being evaluated for surgical intervention with bariatric surgery. She underwent an MPI that showed evidence of anterior wall ischemia. Recommendations were made regarding cardiac catheterization, the risks and the complications were discussed with the patient who is in full understanding and agreement. Procedure Description: Patient was brought to microbiology laboratory manager in fasting semi-sedated state after receiving Fentanyl and Benadryl achieiving moderate conscious sedated state. Using Xylocaine Anesthesia and Seldinger technique, a 6-Turkish sheath was introduced in the right radial artery . Subsequently, selective coronary angiography was performed using a 5-Turkish 3.5 bend Diego catheter. Multiple views of the coronary artery including hemiaxial views were obtained. The right Diego catheter was used to cross the aortic valve and LVEDP was calculated. Following that, catheter and sheath were removed. Hemostasis was obtained with deployment of TR band . There was no immediate complication. Patient was returned to room in stable condition. Of note, the patient received a total of 5000 units of intravenous heparin as well as intra-arterial verapamil. Findings: Left main: This is a large size vessel, bifurcating into LAD and left circumflex, left main has no evidence of high-grade stenosis LAD: This is a large size vessel reaching to the apex giving rise to a large diagonal branch, the LAD has no evidence of obstructive disease. Left circumflex: This is a nondominant large size vessel giving rise to a large obtuse marginal branch that has no evidence of obstructive disease RCA: This is a dominant are size vessel bifurcating distally into PDA and PLV the right coronary artery and its branches have no evidence of obstructive disease Left Ventriculogram: Not performed Hemodynamics: There was no gradient across the aortic valve , LVEDP was 24-26 mmHg Conclusion: 1. Normal coronary arteries 2. Right dominance 3. Elevated LVEDP Recommendations: I have recommended to continue aggressive coronary risks modification, I see no contraindication to her upcoming surgical intervention. The findings and the recommendations were discussed with the patient and the family and they were in full understanding and agreement. Duration of sedation is 14 minutes.
[2022-09-02 15:44] VITALS: BP 144/75; PULSE 76
[2022-09-03] MEDS ORDERED: buPROPion XL 150 MG TAB.ER.24H PO SCH (09:00)
== END 2022-09-02 16:21 | disposition home or self-care (01) ==
LOC: CATHCVL 10:30
PROVIDERS: ATTEND Internal Medicine Interventional Cardiology
DX: R07.9 Chest pain, unspecified (principal); E78.5 Hyperlipidemia, unspecified; F17.210 Nicotine dependence, cigarettes, uncomplicated; G47.33 Obstructive sleep apnea (adult) (pediatric); Z82.49 Family history of ischemic heart disease and other diseases of the circulatory system
CPT/HCPCS: 93458; C1769 ×2; C1894; J2001; J3010; J1644; Q9967

== ENCOUNTER → 2023-07-27 | Outpatient (CLI) | payer BC ==
[2023-07-27 17:19] VITALS: BP 169/85; PULSE 65; RESP 18; TEMP 98.7
--- NOTE | 2023-07-27 17:54 | P.PN ---
Subjective DATE: 07/27/2023 FOLLOW UP VISIT. Patient with obstructive sleep apnea hypopnea syndrome return to sleep center for follow-up visit. Information from previous visit have been reviewed. Patient is using PAP equipment every night for the whole night, getting PAP supplies in time. The patient does not have significant problems with the mask, PAP unit and humidification. [place] sleepiness scale is 9, which is borderline. I checked information from PAP unit. PAP unit pressure 8-15, average 13.3 cm H2O. Usage is 100% for more then 4 hours, average 8.25 hours per night. Leak is 5.8 l/m, which is in acceptable range. Apnea Hypopnea Index is 0.7, which is normal. MEDICATIONS:1. Wellbutrin 150 mg once a day 2. Blisovi-Fe During physical exam: GENERAL: A pleasant patient without any distress. VITAL SIGNS: Please see below, weight 390.2. HEENT: PERRLA, EOMI.low position of soft palate, Mallapati 3 . NECK: Supple. No JVD. LUNGS: Clear to percussion and to auscultation. Good air exchange. No wheezing or rhonchi. HEART: S1, S2 regular. ABDOMEN: Soft and nontender. Obese EXTREMITIES: No clubbing or cyanosis. GRAIN UNLOADER MACHINE: Awake, alert, and oriented x3. No focal deficit. Impressions: 1. Obstructive sleep apnea-hypopnea syndrome. Patient demonstrated great compliance with treatment, benefiting from treatment. 2. Obesity, patient increased weight on about 14 pounds comparing with previous visit. 3. History of anxiety. 4. Status post tonsillectomy. 5. Status post LEEP in 2004 for cervical cancer. 6. Status post D&C. Plan: 1. Continue using PAP equipment every night for the whole night. 2. To change air filter at least 1-2 times per month. 3. PAP unit should stay lower then position of the head. 4. Advised patient to remove all remaining water from humidifier canister daily and make it dry after each usage. Refill canister with fresh distilled water before each usage. 5. Sleep hygiene with regular time in bed for at least 8 hours. 6. Precautions related to driving. No driving if feel any sleepiness. 7. I will maintain prescription for PAP supplies including mask, tube, filters. 8. Follow up visit in 6 months or earlier if patient has any problems. 9. Watching and losing weight. Thank you very much for allowing me to participate in the management of your patient. Axel Houston MD, PhD, FAASM. Diplomat of [place] [employer], Sleep Medicine Board by [place] [employer] Vending Service Technician of [facility] [place] Objective - Vital Signs Vital signs: Vital Signs Temp 98.7 F 07/27/23 17:17 Pulse 65 07/27/23 17:17 Resp 18 07/27/23 17:17 BP 169/85 07/27/23 17:17 Pulse Ox 98 07/27/23 17:17 FiO2
== END | disposition home or self-care (01) ==
LOC: 3 N SLEEP 16:16
PROVIDERS: ATTEND Internal Medicine
DX: G47.33 Obstructive sleep apnea (adult) (pediatric) (principal); F41.9 Anxiety disorder, unspecified; E66.9 Obesity, unspecified; Z98.890 Other specified postprocedural states; Z85.41 Personal history of malignant neoplasm of cervix uteri; Z79.899 Other long term (current) drug therapy; Z99.89 Dependence on other enabling machines and devices; Z88.0 Allergy status to penicillin; Z88.8 Allergy status to other drugs, medicaments and biological substances; Z88.5 Allergy status to narcotic agent; Z87.891 Personal history of nicotine dependence
CPT/HCPCS: 99212

== ENCOUNTER → 2024-03-07 | Outpatient (CLI) | payer OTHER ==
[2024-03-07 17:01] VITALS: BP 119/77; PULSE 94; RESP 16; TEMP 98.2
--- NOTE | 2024-03-07 17:22 | P.PROGSL ---
Subjective DATE: 03/07/2024 FOLLOW UP VISIT. Patient with obstructive sleep apnea hypopnea syndrome return to sleep center for follow-up visit. Information from previous visit have been reviewed. Patient is using PAP equipment every night for the whole night, getting PAP supplies in time. The patient does not have significant problems with the mask, PAP unit and humidification. [place] sleepiness scale is 7, which is in normal range. I checked information from PAP unit. PAP unit pressure 8-15, average 14.2 cm H2O. Usage is 100% for more then 4 hours, average 9 hours per night. Leak is 4 l/m, which is in acceptable range. Apnea Hypopnea Index is 1.5, which is normal. MEDICATIONS have been reviewed, please see below. During physical exam: GENERAL: A pleasant patient without any distress. VITAL SIGNS: Please see below, weight is 394 lbs. HEENT: PERRLA, EOMI.low position of soft palate, Mallapati 3. NECK: Supple. No JVD. LUNGS: Clear to percussion and to auscultation. Good air exchange. No wheezing or rhonchi. HEART: S1, S2 regular. ABDOMEN: Soft and nontender. Slightly obese EXTREMITIES: No clubbing or cyanosis. SMELTER OPERATOR: Awake, alert, and oriented x3. No focal deficit. Impressions: 1. Obstructive sleep apnea-hypopnea syndrome. Patient demonstrated great compliance with treatment, benefiting from treatment. 2. Obesity, BMI 58.1, patient increased weight on 4 pounds comparing with previous visit. 3. History of anxiety. 4. Status post tonsillectomy. 5. Status post D&C. 6. Status post LEEP for cervical cancer in 2004. Plan: 1. Continue using PAP equipment every night for the whole night. 2. Sleep hygiene with regular time in bed for at least 7.5-8 hours 3. PAP unit should stay lower then position of the head. 4. Advised patient to remove all remaining water from humidifier canister daily and make it dry after each usage. Refill canister with fresh distilled water before each usage. 5. Watching and losing weight. 6. Precautions related to driving. No driving if feel any sleepiness. 7. I will maintain prescription for PAP supplies including mask, tube, filters. 8. Follow up visit in 8 months or earlier if patient has any problems. Thank you very much for allowing me to participate in the management of your patient. Axel Houston MD, PhD, FAASM. Diplomat of [place] [employer], Sleep Medicine Board by [place] [employer] Applications Architect of [facility] [place] Objective - Vital Signs Vital Signs: Vital Signs Temp 98.2 F 03/07/24 17:00 Pulse 94 03/07/24 17:00 Resp 16 03/07/24 17:00 BP 119/77 03/07/24 17:00 Pulse Ox 98 03/07/24 17:00 FiO2 Intake & Output 03/06/24 03/07/24 03/07/24 18:59 06:59 18:59 Weight 178.715 kg Home Medications: Home Medications Medication Instructions Recorded Confirmed Type Aspirin [Adult Low Dose Aspirin EC] 81 mg PO DAILY 08/30/22 09/02/22 History Cider Vinegar [Apple Cider Vinegar] 300 mg PO DAILY 08/30/22 09/02/22 History Ergocalciferol [Vitamin D2 (1250 1,250 mcg PO WEEKLY 08/30/22 09/02/22 History Mcg = 59527 Iu)] Fish Oil/Dha/Epa [Fish Oil 1,200 1 each PO DAILY 08/30/22 09/02/22 History mg Fish Oil] Magnesium Oxide [Mag-Ox] 400 mg PO DAILY 08/30/22 03/07/24 History Mecobalamin [Methyl B-12] 1,000 mcg PO DAILY 08/30/22 09/02/22 History Multivitamins, Thera [Multivitamin 1 tab PO DAILY 08/30/22 03/07/24 History (formulary)] buPROPion XL [Wellbutrin XL] 150 mg PO DAILY 08/30/22 09/02/22 History carBAMazepine [carBAMazepine ER] 100 mg PO DAILY 08/30/22 09/02/22 History norethindrone-e.estradioL-iron 1 each PO DAILY 08/30/22 09/02/22 History [Blisovi 24 Fe Tablet] Cholecalciferol (Vitamin D3) See Rx Instructions .ROUTE .COMPLEX 03/07/24 03/07/24 History [Vitamin D3 (1250 Mcg = 50,000 Iu)] FLUoxetine HCL [PROzac] 10 mg PO DAILY 03/07/24 03/07/24 History
== END ==
LOC: 3 N SLEEP 16:23
PROVIDERS: ATTEND Internal Medicine
DX: G47.33 Obstructive sleep apnea (adult) (pediatric) (principal); E66.9 Obesity, unspecified; Z98.890 Other specified postprocedural states; Z90.89 Acquired absence of other organs; Z99.89 Dependence on other enabling machines and devices; Z68.43 Body mass index [BMI] 50.0-59.9, adult; Z85.41 Personal history of malignant neoplasm of cervix uteri; Z86.59 Personal history of other mental and behavioral disorders; Z87.891 Personal history of nicotine dependence; Z88.8 Allergy status to other drugs, medicaments and biological substances; Z88.0 Allergy status to penicillin
CPT/HCPCS: 99212